=== PATIENT | female | born 1970 | race American Indian/Alaskan Native ===

== ENCOUNTER 2016-07-04 20:17 | Emergency (ER) | payer BC, OTHER ==
[2016-07-04 20:28] VITALS: BP 130/77
--- NOTE | 2016-07-04 21:06 | EDM.PDOC ---
ED HPI GENERAL MEDICAL PROBLEM - General Chief Complaint: Back Pain or Injury Stated Complaint: FEET Time Seen by Provider: 07/04/16 20:30 Source of Information: Reports: Patient - History of Present Illness INITIAL COMMENTS - FREE TEXT/NARRATIVE: c/o bilateral tingling, pins and needles to bottoms of both feet worse over past 2 weeks after walking in [place]. hx similar intermittently over past 2 years. Diabetic, been working on keeping blod sugars under control with diet and exercise. Has not checked BS lately. 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: Musculoskeletal History: Reports: Back Pain, Chronic, Other (See Below) Other Musculoskeletal History: bursitis right shoulder Neurological History: Reports: Concussion, Migraines Psychiatric History: Reports: Anxiety, Depression Endocrine/Metabolic History: Reports: Diabetes, Type II Other Endocrine/Metabolic History: diet and exercise controlled - Past Surgical History Musculoskeletal Surgical History: Reports: Other (See Below) Social & Family History - Family History Family Medical History: Noncontributory - Tobacco Use Smoking Status *Q: Current Every Day Smoker Years of Tobacco use: 26 Packs/Tins Daily: 1 Used Tobacco, but Quit: No Second Hand Smoke Exposure: Yes - Caffeine Use Caffeine Use: Reports: Coffee, Soda - Alcohol Use Days Per Week of Alcohol Use: 0 - Recreational Drug Use Recreational Drug Use: No ED ROS GENERAL - Review of Systems Review Of Systems: ROS reveals no pertinent complaints other than HPI. ED EXAM, GENERAL - Physical Exam Exam: See Below Exam Limited By: Language Barrier General Appearance: Alert, No Apparent Distress Eye Exam: Bilateral Eye: EOMI, PERRL Ears: Normal External Exam Nose: Normal Inspection Throat/Mouth: Normal Inspection Head: Atraumatic, Normocephalic Neck: Normal Inspection, Full Range of Motion Respiratory/Chest: Lungs Clear Cardiovascular: Normal Peripheral Pulses, Regular Rate, Rhythm Peripheral Pulses: 2+: Dorsalis Pedis (L), Dorsalis Pedis (R) GI/Abdominal: Normal Bowel Sounds Extremities: Normal Range of Motion, No Pedal Edema, Other (bilateral pedal pulses present, high arch right flat foot left, hair present all toes, nails eroded thick few small open areas around remaining thick nails. no signs of infection slight decrease in sensation to distal 2-4 toes, ) Neurological: Alert, Oriented Psychiatric: Normal Affect Skin Exam: Warm, Dry, Intact Course - Vital Signs Last Recorded V/S: Last Vital Signs Temp 96.8 F 07/04/16 20:21 Pulse 94 07/04/16 20:21 Resp 16 07/04/16 20:21 BP 130/77 07/04/16 20:21 Pulse Ox 98 07/04/16 20:21 - Orders/Labs/Meds Orders: Active Orders 24 hr Category Date Time Status Glucose [Blood Glucose Check, Bedside] [RC] ONETIME Care 07/04/16 21:06 Active Departure - Departure Time of Disposition: 21:14 Disposition: Home, Self-Care 01 Condition: good Clinical Impression: Neuropathic pain of both feet - Discharge Information Instructions: Neuropathic Pain Forms: ED Department Discharge Additional Instructions: neurontin 300mg one twice daily #14 alternate tylenol and ibuprofen rest tonight [facility] clinic follow up this week - My Orders Last 24 Hours: My Active Orders 07/04/16 21:06 Glucose [Blood Glucose Check, Bedside] [RC] ONETIME - Assessment/Plan Last 24 Hours: My Active Orders 07/04/16 21:06 Glucose [Blood Glucose Check, Bedside] [RC] ONETIME
[2016-07-04] MEDS ORDERED: Gabapentin 300 MG Cap PO ONE (21:18)
[2016-07-04] MEDS ORDERED: Gabapentin 300 MG Cap ONE (21:18)
== END 2016-07-04 21:26 | disposition home or self-care (01) ==
LOC: DL.ED 20:17
DX: G62.9 Polyneuropathy, unspecified (principal); I10 Essential (primary) hypertension; E11.9 Type 2 diabetes mellitus without complications; F17.210 Nicotine dependence, cigarettes, uncomplicated; Z88.5 Allergy status to narcotic agent; Z88.8 Allergy status to other drugs, medicaments and biological substances
CPT/HCPCS: 82962; 99283; A9270-GY

== ENCOUNTER 2016-09-27 00:41 | Emergency (ER) | payer OTHER ==
[2016-09-27 00:46] VITALS: BP 146/72
--- NOTE | 2016-09-27 00:59 | EDM.PDOC ---
ED HPI GENERAL MEDICAL PROBLEM - General Chief Complaint: General Stated Complaint: FEET Time Seen by Provider: 09/27/16 00:51 Source of Information: Reports: Patient History Limitations: Reports: No Limitations - History of Present Illness INITIAL COMMENTS - FREE TEXT/NARRATIVE: This 46 yo female patient reports to the ED with bilateral foot pain. The patient reports she has been seen for similar symptoms in the past, but does not have a primary care provider. The patient has taken ibuprofen for temporary symptoms relief, but no improvement in symptoms. The patient reports her pain started about 2 month ago, but has not seen a primary care provider for over 1 year. The patient reports she used to be seen by a foot doctor in [place], but reports the clinic does not have a foot doctor. The patient was informed that Dr. 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 Bilateral Feet Pain Score (Numeric/FACES): 3 - Related Data Allergies Allergy/AdvReac Type Severity Reaction Status Date / Time codeine Allergy Cannot Verified 09/27/16 00:46 Remember sertraline HCl [From Zoloft] Allergy Cannot Verified 09/27/16 00:46 Remember tramadol Allergy Ringing in Verified 09/27/16 00:46 the Ears Home Meds: Home Meds Gabapentin [Neurontin] 300 mg PO BID 09/27/16 [History] Past Medical History Cardiovascular History: Reports: Hypertension Other Cardiovascular History: diet and exercise controlled 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: Musculoskeletal History: Reports: Back Pain, Chronic, Other (See Below) Other Musculoskeletal History: bursitis right shoulder Neurological History: Reports: Concussion, Migraines Psychiatric History: Reports: Anxiety, Depression Endocrine/Metabolic History: Reports: Diabetes, Type II Other Endocrine/Metabolic History: diet and exercise controlled - Past Surgical History Musculoskeletal Surgical History: Reports: Other (See Below) Social & Family History - Family History Family Medical History: Noncontributory - Tobacco Use Smoking Status *Q: Current Every Day Smoker Years of Tobacco use: 26 Packs/Tins Daily: 1 Used Tobacco, but Quit: No Second Hand Smoke Exposure: Yes - Caffeine Use Caffeine Use: Reports: Coffee, Soda - Alcohol Use Days Per Week of Alcohol Use: 0 - Recreational Drug Use Recreational Drug Use: No ED ROS GENERAL - Review of Systems Review Of Systems: ROS reveals no pertinent complaints other than HPI. ED EXAM, GENERAL - Physical Exam Exam: See Below Exam Limited By: No Limitations General Appearance: Alert, WD/WN, Mild Distress Eye Exam: Bilateral Eye: EOMI, Normal Inspection, PERRL Ears: Normal External Exam, Normal Canal, Hearing Grossly Normal, Normal TMs Ear Exam: Bilateral Ear: Auricle Normal, Canal Normal, TM normal Nose: Normal Inspection, Normal Mucosa, No Blood Throat/Mouth: Normal Inspection, Normal Lips, Normal Teeth, Normal Gums, Normal Oropharynx, Normal Voice, No Airway Compromise Head: Atraumatic, Normocephalic Neck: Normal Inspection, Supple, Non-Tender, Full Range of Motion Respiratory/Chest: No Respiratory Distress, Lungs Clear, Normal Breath Sounds, No Accessory Muscle Use, Chest Non-Tender Cardiovascular: Normal Peripheral Pulses, Regular Rate, Rhythm, No Edema, No Gallop, No JVD, No Murmur, No Rub GI/Abdominal: Normal Bowel Sounds, Soft, Non-Tender, No Organomegaly, No Distention, No Abnormal Bruit, No Mass (Female) Exam: Deferred Rectal (Female) Exam: Deferred Back Exam: Normal Inspection, Full Range of Motion, NT Extremities: Normal Inspection, Normal Range of Motion, Non-Tender, Normal Capillary Refill, No Pedal Edema Neurological: Alert, Oriented, CN II-XII Intact, Normal Cognition, Normal Gait, Normal Reflexes, No Motor/Sensory Deficits Psychiatric: Normal Affect, Normal Mood Skin Exam: Warm, Dry, Intact, Normal Color, No Rash Lymphatic: No Adenopathy Course - Vital Signs Last Recorded V/S: Last Vital Signs Temp 36.1 C 09/27/16 00:44 Pulse 90 09/27/16 00:44 Resp 18 09/27/16 00:44 BP 146/72 H 09/27/16 00:44 Pulse Ox 99 09/27/16 00:44 - Orders/Labs/Meds Orders: Active Orders 24 hr Category Date Time Status Glucose [Blood Glucose Check, Bedside] [RC] ONETIME Care 09/27/16 00:48 Ordered Departure - Departure Time of Disposition: 01:02 Disposition: Home, Self-Care 01 Condition: Fair Clinical Impression: Neuropathic pain of both feet - Discharge Information Instructions: Peripheral Neuropathy Forms: ED Department Discharge Care Plan Goals: The patient was advised of the examination and lab results during the visit. The patient was given an oral dose of Gabapentin while in the ED. The patient was discharged with a script for Gabapentin (300 mg) #8 to take 1 by mouth 2 times per day. The patient should follow-up with her primary care facility for continued evaluation and management. If the patient has any additional symptoms or concerns, the patient should visit her primary care facility or return to the emergency department. - My Orders Last 24 Hours: My Active Orders 09/27/16 00:48 Glucose [Blood Glucose Check, Bedside] [RC] ONETIME - Assessment/Plan Last 24 Hours: My Active Orders 09/27/16 00:48 Glucose [Blood Glucose Check, Bedside] [RC] ONETIME
[2016-09-27] MEDS ORDERED: Gabapentin 300 MG Cap PO ONE (01:00)
== END 2016-09-27 01:19 | disposition home or self-care (01) ==
LOC: DL.ED 00:41
DX: M79.2 Neuralgia and neuritis, unspecified (principal); M79.672 Pain in left foot; M79.671 Pain in right foot; I10 Essential (primary) hypertension; G43.909 Migraine, unspecified, not intractable, without status migrainosus; E11.9 Type 2 diabetes mellitus without complications; F17.210 Nicotine dependence, cigarettes, uncomplicated; Z88.5 Allergy status to narcotic agent; Z88.8 Allergy status to other drugs, medicaments and biological substances
CPT/HCPCS: 82962; 99283; A9270

== ENCOUNTER 2016-10-04 22:57 | Emergency (ER) | payer OTHER ==
--- NOTE | 2016-10-04 23:05 | EDM.PDOC ---
ED HPI GENERAL MEDICAL PROBLEM - General Chief Complaint: Respiratory Problem Stated Complaint: SICK Time Seen by Provider: 10/04/16 23:05 Source of Information: Reports: Patient History Limitations: Reports: No Limitations - History of Present Illness INITIAL COMMENTS - FREE TEXT/NARRATIVE: c/o cough sore throat and congestion for past 2 day, fever tonight 101 at home Headache Pain Score (Numeric/FACES): 3 - Related Data Allergies Allergy/AdvReac Type Severity Reaction Status Date / Time codeine Allergy Cannot Verified 10/04/16 23:10 Remember sertraline HCl [From Zoloft] Allergy Cannot Verified 10/04/16 23:10 Remember tramadol Allergy Ringing in Verified 10/04/16 23:10 the Ears Home Meds: Home Meds Gabapentin [Neurontin] 300 mg PO BID 09/27/16 [History] Past Medical History Cardiovascular History: Reports: Hypertension Other Cardiovascular History: diet and exercise controlled 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: Musculoskeletal History: Reports: Back Pain, Chronic, Other (See Below) Other Musculoskeletal History: bursitis right shoulder Neurological History: Reports: Concussion, Migraines Psychiatric History: Reports: Anxiety, Depression Endocrine/Metabolic History: Reports: Diabetes, Type II Other Endocrine/Metabolic History: diet and exercise controlled - Past Surgical History Musculoskeletal Surgical History: Reports: Other (See Below) Social & Family History - Family History Family Medical History: Noncontributory - Tobacco Use Smoking Status *Q: Current Every Day Smoker Years of Tobacco use: 26 Packs/Tins Daily: 1 Used Tobacco, but Quit: No Second Hand Smoke Exposure: Yes - Caffeine Use Caffeine Use: Reports: Coffee, Soda - Alcohol Use Days Per Week of Alcohol Use: 0 - Recreational Drug Use Recreational Drug Use: No ED ROS GENERAL - Review of Systems Review Of Systems: See Below Constitutional: Reports: Fever HEENT: Reports: Sinus Problem, Throat Pain Respiratory: Reports: Cough (worse at night.) Cardiovascular: Reports: No Symptoms GI/Abdominal: Reports: No Symptoms Musculoskeletal: Reports: No Symptoms Skin: Reports: No Symptoms Neurological: Reports: Headache ED EXAM, GENERAL - Physical Exam Exam: See Below Exam Limited By: No Limitations General Appearance: Alert, Mild Distress Ears: Normal External Exam, Normal TMs Nose: Normal Inspection Throat/Mouth: No Airway Compromise, Other (posterior pharnyx erythema) Head: Atraumatic, Normocephalic. No: Facial Tenderness, Sinus Tenderness Neck: Full Range of Motion, Lymphadenopathy (L), Lymphadenopathy (R) Respiratory/Chest: No Respiratory Distress, Lungs Clear, Other (frequent dry cough) Cardiovascular: Normal Peripheral Pulses GI/Abdominal: Soft Extremities: Normal Inspection Neurological: Alert, Oriented, Normal Cognition Psychiatric: Normal Affect, Normal Mood Skin Exam: Warm, Dry, Intact, Normal Color Course - Vital Signs Last Recorded V/S: Last Vital Signs Temp 98.4 F 10/05/16 01:59 Pulse 72 10/05/16 00:55 Resp 20 10/05/16 00:55 BP 121/77 10/05/16 00:55 Pulse Ox 96 10/05/16 01:27 - Orders/Labs/Meds Orders: Active Orders 24 hr Category Date Time Status RT Aerosol Therapy [RC] ASDIRECTED Care 10/05/16 01:17 Active Labs: Laboratory Tests 10/04/16 10/04/16 10/04/16 Range/Units 23:15 23:15 23:15 WBC 8.3 (5.0-10.0) 10^3/uL RBC 4.55 (4.2-5.4) 10^6/uL Hgb 14.2 (12.0-16.0) g/dL Hct 41.8 (37.0-47.0) % MCV 91.9 (80-100) fL MCH 31.2 (27.0-34.0) pg MCHC 34.0 (33.0-35.0) g/dL Plt Count 239 (150-450) 10^3/uL Neut % (Auto) 55.4 (42.2-75.2) % Lymph % (Auto) 35.1 (20.5-50.1) % [place] % (Auto) 7.1 (2-8) % Eos % (Auto) 2.2 (1.0-3.0) % Baso % (Auto) 0.2 (0.0-1.0) % Add Manual Diff Yes Neutrophils % (Manual) 58 % Band Neutrophils % 4 % Lymphocytes % (Manual) 32 % Monocytes % (Manual) 5 % Eosinophils % (Manual) 1 % Sodium 138 (135-145) mmol/L Potassium 3.9 (3.6-5.0) mmol/L Chloride 108 (101-111) mmol/L Carbon Dioxide 21.0 (21.0-31.0) mmol/L Anion Gap 12.9 BUN 10 (7-18) mg/dL Creatinine 0.7 (0.6-1.3) mg/dL Est Cr Clr Drug Dosing 85.79 mL/min Estimated GFR (MDRD) > 60 BUN/Creatinine Ratio 14.28 Glucose 116 H (74-105) mg/dL Lactic Acid 0.8 (0.5-2.2) mmol/L Calcium 8.9 (8.4-10.2) mg/dl Total Bilirubin 0.6 (0.2-1.0) mg/dL AST 22 (10-42) IU/L ALT 17 (10-60) IU/L Alkaline Phosphatase 52 (42-121) IU/L Troponin I < 0.02 (0.00-0.02) ng/ml B-Natriuretic Peptide 8 (0-100) pg/ml Total Protein 7.6 (6.7-8.2) g/dl Albumin 3.8 (3.2-5.5) g/dl Globulin 3.8 Albumin/Globulin Ratio 1.00 Urine Color (YELLOW) Urine Appearance (CLEAR) Urine pH (5.0-9.0) Ur Specific [place] (1.005-1.030) Urine Protein (NEGATIVE) Urine Glucose (UA) (NEGATIVE) Urine Ketones (NEGATIVE) Urine Occult Blood (NEGATIVE) Urine Nitrite (NEGATIVE) Urine Bilirubin (NEGATIVE) Urine Urobilinogen (0.2-1.0) mg/dL Ur Leukocyte Esterase (NEGATIVE) Urine RBC /HPF Urine WBC (0-5/HPF) /HPF Ur Epithelial Cells /HPF Urine Bacteria (0-FEW/HPF) /HPF Urine Mucus /LPF / Range/Units 23:41 WBC (5.0-10.0) 10^3/uL RBC (4.2-5.4) 10^6/uL Hgb (12.0-16.0) g/dL Hct (37.0-47.0) % MCV (80-100) fL MCH (27.0-34.0) pg MCHC (33.0-35.0) g/dL Plt Count (150-450) 10^3/uL Neut % (Auto) (42.2-75.2) % Lymph % (Auto) (20.5-50.1) % [place] % (Auto) (2-8) % Eos % (Auto) (1.0-3.0) % Baso % (Auto) (0.0-1.0) % Add Manual Diff Neutrophils % (Manual) % Band Neutrophils % % Lymphocytes % (Manual) % Monocytes % (Manual) % Eosinophils % (Manual) % Sodium (135-145) mmol/L Potassium (3.6-5.0) mmol/L Chloride (101-111) mmol/L Carbon Dioxide (21.0-31.0) mmol/L Anion Gap BUN (7-18) mg/dL Creatinine (0.6-1.3) mg/dL Est Cr Clr Drug Dosing mL/min Estimated GFR (MDRD) BUN/Creatinine Ratio Glucose (74-105) mg/dL Lactic Acid (0.5-2.2) mmol/L Calcium (8.4-10.2) mg/dl Total Bilirubin (0.2-1.0) mg/dL AST (10-42) IU/L ALT (10-60) IU/L Alkaline Phosphatase (42-121) IU/L Troponin I (0.00-0.02) ng/ml B-Natriuretic Peptide (0-100) pg/ml Total Protein (6.7-8.2) g/dl Albumin (3.2-5.5) g/dl Globulin Albumin/Globulin Ratio Urine Color Yellow (YELLOW) Urine Appearance Slightly cloudy (CLEAR) Urine pH 7.0 (5.0-9.0) Ur Specific [place] 1.010 (1.005-1.030) Urine Protein Negative (NEGATIVE) Urine Glucose (UA) Negative (NEGATIVE) Urine Ketones Negative (NEGATIVE) Urine Occult Blood Moderate H (NEGATIVE) Urine Nitrite Negative (NEGATIVE) Urine Bilirubin Negative (NEGATIVE) Urine Urobilinogen 0.2 (0.2-1.0) mg/dL Ur Leukocyte Esterase Negative (NEGATIVE) Urine RBC 20-30 H /HPF Urine WBC 0-5 (0-5/HPF) /HPF Ur Epithelial Cells Rare /HPF Urine Bacteria Rare (0-FEW/HPF) /HPF Urine Mucus Rare /LPF Meds: Medications Discontinued Medications Generic Name Dose Route Start Last Admin Trade Name Freq PRN Reason Stop Dose Admin Albuterol Confirm 10/05/16 01:44 10/05/16 01:52 Proventil Hfa Administered 10/05/16 01:45 Not Given Dose 6.7 gm INH .STK-MED ONE Albuterol/Ipratropium 3 ml 10/05/16 01:17 10/05/16 01:27 Duoneb 3.0-0.5 Mg/3 Ml NEB 10/05/16 01:18 3 ml ONETIME ONE Administration Amoxicillin/Clavulanate Potassium Confirm 10/05/16 01:44 10/05/16 01:52 Augmentin 875 Mg/125 Mg Administered 10/05/16 01:45 Not Given Dose 1 tab .ROUTE .STK-MED ONE - Radiology Interpretation Free Text/Narrative:: CXR negative Departure - Departure Time of Disposition: 01:35 Disposition: Home, Self-Care 01 Condition: Fair Clinical Impression: Bronchitis, Strep pharyngitis Sinusitis Qualifiers: Sinusitis location: unspecified location Chronicity: unspecified Qualified Code (s): J32.9 - Chronic sinusitis, unspecified - Discharge Information Instructions: Upper Respiratory Infection, Adult, [id number] Forms: ED Department Discharge Additional Instructions: increase fluids tylenol every 4 hours as needed for fever augmentin 875mg one twice daily for one week albuterol inhaler 2 puffs evry 4 hours as needed for cough - My Orders Last 24 Hours: My Active Orders 10/05/16 01:17 RT Aerosol Therapy [RC] ASDIRECTED - Assessment/Plan Last 24 Hours: My Active Orders 10/05/16 01:17 RT Aerosol Therapy [RC] ASDIRECTED
[2016-10-04 23:47] LABS: CHLORIDE,CL 108 mmol/L (101-111); SODIUM,NA 138 mmol/L (135-145)
[2016-10-05 01:04] VITALS: BP 121/77
[2016-10-05] MEDS ORDERED: Albuterol/Ipratropium 3.0-0.5 MG/3 ML Neb Soln NEB ONE (01:17)
[2016-10-05] MEDS ORDERED: Amoxicillin/Clavulanate K 875-125 MG Tab PO ONE (01:44)
[2016-10-05] MEDS ORDERED: Albuterol 6.7 GM Inhaler INH ONE ×2 (01:44)
[2016-10-05] MEDS ORDERED: Amoxicillin/Clavulanate K 875-125 MG Tab ONE (01:44)
== END 2016-10-05 02:01 | disposition home or self-care (01) ==
LOC: DL.ED 22:57
DX: J40 Bronchitis, not specified as acute or chronic (principal); J02.0 Streptococcal pharyngitis; J32.9 Chronic sinusitis, unspecified; I10 Essential (primary) hypertension; E11.9 Type 2 diabetes mellitus without complications; F17.210 Nicotine dependence, cigarettes, uncomplicated; Z88.5 Allergy status to narcotic agent; Z88.6 Allergy status to analgesic agent; Z88.8 Allergy status to other drugs, medicaments and biological substances
CPT/HCPCS: 36415; 71010; 80053; 81001; 83605; 83880; 84484; 85025; 87430; 94640; 99284; A9270

== ENCOUNTER 2016-12-13 23:24 | Emergency (ER) | payer OTHER ==
[2016-12-13 23:34] VITALS: BP 137/85
[2016-12-13] MEDS ORDERED: Meclizine 12.5 MG Tab PO ONE (23:39)
--- NOTE | 2016-12-13 23:43 | EDM.PDOC ---
ED HPI GENERAL MEDICAL PROBLEM - General Chief Complaint: General Stated Complaint: DIZZY [id number] Time Seen by Provider: 12/13/16 23:40 Source of Information: Reports: Patient History Limitations: Reports: No Limitations - History of Present Illness INITIAL COMMENTS - FREE TEXT/NARRATIVE: was getting ready for work suddenly felt dizzy with room spinning but no nausea/ vomiting yet. denies CP/SOB but face feels tingling. got scared because never had this before. 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: Musculoskeletal History: Reports: Back Pain, Chronic, Other (See Below) Other Musculoskeletal History: bursitis right shoulder Neurological History: Reports: Concussion, Migraines Psychiatric History: Reports: Anxiety, Depression Endocrine/Metabolic History: Reports: Diabetes, Type II Other Endocrine/Metabolic History: diet and exercise controlled - Past Surgical History Musculoskeletal Surgical History: Reports: Other (See Below) Social & Family History - Family History Family Medical History: Noncontributory - Tobacco Use Smoking Status *Q: Heavy Tobacco Smoker Years of Tobacco use: 20 Packs/Tins Daily: 1 Used Tobacco, but Quit: No Second Hand Smoke Exposure: Yes - Caffeine Use Caffeine Use: Reports: Coffee, Soda - Alcohol Use Days Per Week of Alcohol Use: 0 - Recreational Drug Use Recreational Drug Use: No ED ROS GENERAL - Review of Systems Review Of Systems: ROS reveals no pertinent complaints other than HPI. ED EXAM, GENERAL - Physical Exam Exam: See Below Exam Limited By: No Limitations General Appearance: Alert, WD/WN, Anxious Eye Exam: Bilateral Eye: PERRL (pupils ER @ 4mm) Ears: Normal External Exam, Normal Canal, Hearing Grossly Normal Ear Exam: Bilateral Ear: TM Dull Throat/Mouth: Normal Inspection, Normal Oropharynx, Normal Voice, No Airway Compromise Head: Atraumatic Neck: Non-Tender, Full Range of Motion Respiratory/Chest: No Respiratory Distress, Lungs Clear, Normal Breath Sounds Cardiovascular: Regular Rate, Rhythm GI/Abdominal: Soft, Non-Tender Neurological: Alert, Oriented, Normal Cognition, Normal Gait, No Motor/Sensory Deficits Psychiatric: Anxious Skin Exam: Warm, Dry, Normal Color Lymphatic: No Adenopathy Course - Vital Signs Last Recorded V/S: Last Vital Signs Temp 36.6 C 12/13/16 23:31 Pulse 75 12/13/16 23:31 Resp 18 12/13/16 23:31 BP 137/85 12/13/16 23:31 Pulse Ox 97 12/13/16 23:31 - Orders/Labs/Meds Orders: Active Orders 24 hr Category Date Time Status EKG 12 Lead [EKG Documentation Completion] [RC] STAT Care 12/13/16 23:38 Active Labs: Laboratory Tests 12/13/16 12/13/16 Range/Units 23:46 23:46 WBC 8.3 (5.0-10.0) 10^3/uL RBC 4.40 (4.2-5.4) 10^6/uL Hgb 13.6 (12.0-16.0) g/dL Hct 40.8 (37.0-47.0) % MCV 92.7 (80-100) fL MCH 30.9 (27.0-34.0) pg MCHC 33.3 (33.0-35.0) g/dL Plt Count 218 (150-450) 10^3/uL Neut % (Auto) 56.8 (42.2-75.2) % Lymph % (Auto) 35.3 (20.5-50.1) % [place] % (Auto) 5.4 (2-8) % Eos % (Auto) 2.4 (1.0-3.0) % Baso % (Auto) 0.1 (0.0-1.0) % Sodium 136 (135-145) mmol/L Potassium 3.9 (3.6-5.0) mmol/L Chloride 106 (101-111) mmol/L Carbon Dioxide 22.0 (21.0-31.0) mmol/L Anion Gap 11.9 BUN 12 (7-18) mg/dL Creatinine 0.7 (0.6-1.3) mg/dL Est Cr Clr Drug Dosing 85.79 mL/min Estimated GFR (MDRD) > 60 BUN/Creatinine Ratio 17.14 Glucose 134 H (74-105) mg/dL Calcium 8.9 (8.4-10.2) mg/dl Total Bilirubin 0.8 (0.2-1.0) mg/dL AST 22 (10-42) IU/L ALT 19 (10-60) IU/L Alkaline Phosphatase 47 (42-121) IU/L Troponin I < 0.02 (0.00-0.02) ng/ml Total Protein 7.0 (6.7-8.2) g/dl Albumin 3.8 (3.2-5.5) g/dl Globulin 3.2 Albumin/Globulin Ratio 1.19 Meds: Medications Discontinued Medications Generic Name Dose Route Start Last Admin Trade Name Freq PRN Reason Stop Dose Admin Meclizine HCl 12.5 mg 12/13/16 23:39 12/13/16 23:48 Antivert PO 12/13/16 23:40 12.5 mg ONETIME ONE Administration Promethazine HCl 25 mg 12/14/16 00:09 12/14/16 00:14 Phenergan IM 12/14/16 00:10 25 mg ONETIME ONE Administration - Re-Assessments/Exams Free Text/Narrative Re-Assessment/Exam: 12/14/16 00:40 re-exam; s/p IM phenergan = much better but not 100%. Departure - Departure Time of Disposition: 00:40 Disposition: Home, Self-Care 01 Condition: Good Clinical Impression: Labyrinthine dysfunction Qualifiers: Laterality: bilateral Qualified Code(s): H83.2X3 - Labyrinthine dysfunction, bilateral - Discharge Information Instructions: Labyrinthitis, [id number] Forms: ED Department Discharge Additional Instructions: 1) rest as much as possible 2) follow up at clinic or recheck as needed rx givne; medrol dospak antivert 25mg bid x 12 - My Orders Last 24 Hours: My Active Orders 12/13/16 23:38 EKG 12 Lead [EKG Documentation Completion] [RC] STAT - Assessment/Plan Last 24 Hours: My Active Orders 12/13/16 23:38 EKG 12 Lead [EKG Documentation Completion] [RC] STAT
[2016-12-14] MEDS ORDERED: Promethazine 25 MG/ML SDV IM ONE (00:09)
[2016-12-14 00:12] LABS: CHLORIDE,CL 106 mmol/L (101-111); SODIUM,NA 136 mmol/L (135-145)
--- NOTE | 2016-12-15 11:28 | EKG ---
12/13/2016 - YOVANNY CHU - TIME: 2338 hours. EKG shows normal sinus rhythm. [facility] /[id number]
== END 2016-12-14 00:49 | disposition home or self-care (01) ==
LOC: DL.ED 23:24
DX: H83.2X3 Labyrinthine dysfunction, bilateral (principal); F17.210 Nicotine dependence, cigarettes, uncomplicated; Z88.5 Allergy status to narcotic agent; Z88.8 Allergy status to other drugs, medicaments and biological substances
CPT/HCPCS: 36415; 80053; 84484; 85025; 93005; 96372; 99284; A9270; J2550

== ENCOUNTER 2017-02-26 20:29 | Emergency (ER) | payer OTHER ==
[2017-02-26] MEDS ORDERED: Amoxicillin/Clavulanate K 875-125 MG Tab PO ONE (20:30)
[2017-02-26 20:48] VITALS: BP 153/88
--- NOTE | 2017-02-26 21:39 | EDM.PDOC ---
ED HPI GENERAL MEDICAL PROBLEM - General Chief Complaint: ENT Problem Stated Complaint: THROAT/TROUBLE BREATHING, [id number] Time Seen by Provider: 02/26/17 21:34 Source of Information: Reports: Patient - History of Present Illness INITIAL COMMENTS - FREE TEXT/NARRATIVE: c/ sore throat and chills x 2 days, worse today. Throat Pain Score (Numeric/FACES): 8 - Related Data Allergies Allergy/AdvReac Type Severity Reaction Status Date / Time sertraline HCl [From Zoloft] Allergy Cannot Verified 02/26/17 20:48 Remember tramadol Allergy Ringing in Verified 02/26/17 20:48 the Ears Home Meds: Home Meds . 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: Musculoskeletal History: Reports: Back Pain, Chronic, Other (See Below) Other Musculoskeletal History: bursitis right shoulder Neurological History: Reports: Concussion, Migraines Psychiatric History: Reports: Anxiety, Depression Endocrine/Metabolic History: Reports: Diabetes, Type II Other Endocrine/Metabolic History: diet and exercise controlled Hematologic History: Reports: None Immunologic History: Reports: None Oncologic (Cancer) History: Reports: None Dermatologic History: Reports: None - Past Surgical History Musculoskeletal Surgical History: Reports: Other (See Below) Social & Family History - Family History Family Medical History: Noncontributory - Tobacco Use Smoking Status *Q: Current Every Day Smoker Years of Tobacco use: 31 Packs/Tins Daily: 1.1 Used Tobacco, but Quit: No Second Hand Smoke Exposure: Yes - Caffeine Use Caffeine Use: Reports: Coffee, Soda - Alcohol Use Days Per Week of Alcohol Use: 0 - Recreational Drug Use Recreational Drug Use: No ED ROS ENT - Review of Systems Review Of Systems: See Below Constitutional: Reports: Chills, Decreased Appetite HEENT: Reports: Throat Pain Respiratory: Reports: Cough Cardiovascular: Reports: No Symptoms GI/Abdominal: Reports: No Symptoms Musculoskeletal: Reports: No Symptoms ED EXAM, ENT - Physical Exam Exam: See Below Exam Limited By: No Limitations General Appearance: Alert, Moderate Distress Eye Exam: Bilateral Eye: EOMI Ears: Normal External Exam, Normal TMs Nose: Normal Inspection Mouth/Throat: Normal Inspection, Pharyngeal Erythema. No: Tonsillar Exudates Head: Atraumatic, Normocephalic Neck: Normal Inspection, Supple, Non-Tender, Full Range of Motion, Lymphadenopathy (L), Lymphadenopathy (R) Respiratory/Chest: No Respiratory Distress, Lungs Clear, Normal Breath Sounds Cardiovascular: Normal Peripheral Pulses, Regular Rate, Rhythm GI/Abdominal: Normal Bowel Sounds, Soft, Non-Tender Back: Normal Inspection Neurological: Alert, Oriented Psychiatric: Normal Affect Skin: Warm, Dry, Intact, Normal Color Course - Vital Signs Last Recorded V/S: Last Vital Signs Temp 99 F 02/26/17 20:44 Pulse 86 02/26/17 20:44 Resp 18 02/26/17 20:44 BP 153/88 H 02/26/17 20:44 Pulse Ox 98 02/26/17 20:44 - Orders/Labs/Meds Meds: Medications Discontinued Medications Generic Name Dose Route Start Last Admin Trade Name Jeronimoq PRN Reason Stop Dose Admin Amoxicillin/Clavulanate Potassium Confirm 02/26/17 21:42 02/26/17 21:46 Augmentin 875 Mg/125 Mg Administered 02/26/17 21:43 Not Given Dose 2 tab .ROUTE .STK-MED ONE Departure - Departure Time of Disposition: 21:36 Disposition: Home, Self-Care 01 Condition: Good Clinical Impression: Strep pharyngitis - Discharge Information Instructions: Strep Throat, [id number] Referrals: PCP,None [Primary Care Provider] - Forms: ED Department Discharge Additional Instructions: tylenol 650mg every 4 hours as needed for discomfort chloraseptic throat spray as needed (OTC) increase fluids augmentin 875mg one twice daily for 10 days follow up in clinic as needed good hand washing, do not share utensils or drinking glasses
[2017-02-26] MEDS ORDERED: Amoxicillin/Clavulanate K 875-125 MG Tab ONE (21:42)
== END 2017-02-26 21:51 | disposition home or self-care (01) ==
LOC: DL.ED 20:29
DX: J02.0 Streptococcal pharyngitis (principal); F17.210 Nicotine dependence, cigarettes, uncomplicated; Z88.5 Allergy status to narcotic agent; Z88.8 Allergy status to other drugs, medicaments and biological substances
CPT/HCPCS: 87430; 99283; A9270-GY

== ENCOUNTER 2018-04-03 19:24 | Emergency (ER) | payer OTHER ==
[2018-04-03 19:42] VITALS: BP 136/82
--- NOTE | 2018-04-03 19:49 | EDM.PDOC ---
ED HPI GENERAL MEDICAL PROBLEM - General Chief Complaint: General Stated Complaint: PAIN Time Seen by Provider: 04/03/18 20:00 Source of Information: Reports: Patient History Limitations: Reports: No Limitations - History of Present Illness INITIAL COMMENTS - FREE TEXT/NARRATIVE: Sore to inner labia since wednesday. Tried warm baths, not helping. Hurts to sit down tonight. No concerns STD, no prior and no activity for over 2 years. Diarrhea last week. Resolved. No hx skin infections. No fever or chills. 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: Musculoskeletal History: Reports: Back Pain, Chronic, Other (See Below) Other Musculoskeletal History: bursitis right shoulder Neurological History: Reports: Concussion, Migraines Psychiatric History: Reports: Anxiety, Depression Endocrine/Metabolic History: Reports: Diabetes, Type II Other Endocrine/Metabolic History: diet and exercise controlled Hematologic History: Reports: None Immunologic History: Reports: None Oncologic (Cancer) History: Reports: None Dermatologic History: Reports: None - Past Surgical History Musculoskeletal Surgical History: Reports: Other (See Below) Social & Family History - Family History Family Medical History: Noncontributory - Caffeine Use Caffeine Use: Reports: Coffee, Soda ED ROS GENERAL - Review of Systems Review Of Systems: ROS reveals no pertinent complaints other than HPI. ED EXAM, GENERAL - Physical Exam Exam: See Below Exam Limited By: No Limitations General Appearance: Alert, Moderate Distress Eye Exam: Bilateral Eye: EOMI Ears: Normal External Exam Nose: Normal Inspection Throat/Mouth: Normal Lips, Normal Voice Head: Atraumatic, Normocephalic Neck: Normal Inspection Respiratory/Chest: No Respiratory Distress, Normal Breath Sounds Cardiovascular: Normal Peripheral Pulses, Regular Rate, Rhythm GI/Abdominal: Soft (Female) Exam: Other (labia abcess) Extremities: Normal Range of Motion Neurological: Alert, Oriented, Normal Cognition Psychiatric: Normal Affect, Normal Mood Skin Exam: Warm, Dry, Intact, Normal Color, Erythema, Increased Warmth Lymphatic: Other (2x3cm raised firm indurated tender area left posterior labia) Course - Vital Signs Last Recorded V/S: Last Vital Signs Temp 98.4 F 04/03/18 19:41 Pulse 93 04/03/18 19:41 Resp 20 04/03/18 19:41 BP 136/82 04/03/18 19:41 Pulse Ox 99 04/03/18 19:41 - Orders/Labs/Meds Orders: Active Orders 24 hr Category Date Time Status UA RFX DENNY AND CULT IF INDIC [URIN] Routine Lab 04/03/18 20:18 Ordered Meds: Medications Discontinued Medications Generic Name Dose Route Start Last Admin Trade Name Freq PRN Reason Stop Dose Admin Hydrocodone Bitart/Acetaminophen Confirm 04/03/18 20:32 [place] 325-10 Mg Administered 04/03/18 20:33 Dose 3 tab .ROUTE .STK-MED ONE Clindamycin HCl Confirm 04/03/18 20:32 Cleocin Administered 04/03/18 20:33 Dose 900 mg .ROUTE .STK-MED ONE Departure - Departure Time of Disposition: 20:31 Disposition: Home, Self-Care 01 Condition: Good Clinical Impression: Abscess - Discharge Information *PRESCRIPTION DRUG MONITORING PROGRAM REVIEWED*: Yes *COPY OF PRESCRIPTION DRUG MONITORING REPORT IN PATIENT DONA: No Instructions: Skin Abscess, [id number], Incision and Drainage Forms: ED Department Discharge Additional Instructions: follow up with Dr Scherer in am call [phone] to schedule warm pack avoid pressure to area clindamycin 300mg three itmes daily for one week hydrocodone 10/325 one every 6 hours as needed for severe pain tylenol 650mg every 4 hours as needed mild to moderate pain probiotic - My Orders Last 24 Hours: My Active Orders 04/03/18 20:18 UA RFX DENNY AND CULT IF INDIC [URIN] Routine - Assessment/Plan Last 24 Hours: My Active Orders 04/03/18 20:18 UA RFX DENNY AND CULT IF INDIC [URIN] Routine
[2018-04-03] MEDS ORDERED: Acetaminophen/HYDROcodone 325-10 MG Tab ONE (20:32)
[2018-04-03] MEDS ORDERED: Clindamycin HCl 150 MG Cap ONE (20:32)
== END 2018-04-03 20:48 | disposition home or self-care (01) ==
LOC: DL.ED 19:24
DX: N76.4 Abscess of vulva (principal); F17.210 Nicotine dependence, cigarettes, uncomplicated; I10 Essential (primary) hypertension; Z88.5 Allergy status to narcotic agent; Z88.8 Allergy status to other drugs, medicaments and biological substances
CPT/HCPCS: 99283

== ENCOUNTER 2018-07-03 21:21 | Emergency (ER) | payer OTHER ==
[2018-07-03] MEDS ORDERED: Acetaminophen/HYDROcodone 325-10 MG Tab PO ONE (21:22)
[2018-07-03] MEDS ORDERED: Cyclobenzaprine 10 MG Tab PO ONE (21:22)
[2018-07-03 21:27] VITALS: BP 161/94
[2018-07-03] MEDS ORDERED: Cyclobenzaprine 10 MG Tab ONE (22:09)
[2018-07-03] MEDS ORDERED: Acetaminophen/HYDROcodone 325-10 MG Tab ONE (22:09)
--- NOTE | 2018-07-03 22:09 | EDM.PDOC ---
ED HPI GENERAL MEDICAL PROBLEM - General Chief Complaint: Upper Extremity Injury/Pain Stated Complaint: RT SHOULDER Time Seen by Provider: 07/03/18 22:00 Source of Information: Reports: Patient History Limitations: Reports: No Limitations - History of Present Illness INITIAL COMMENTS - FREE TEXT/NARRATIVE: right shoulder pain x 3 days, not relieved with ibuprofen, has not tried alternating with tylenol No fever or joint swelling. Hx bursitis to shoulder last time in november. Has not seen PCP for shoulder recently. No prior hx of PT. Limited ROM worse upward or forward movement. Has lidocaine patches, also used without relief. Pasin spasms up to neck and upper back. Right Shoulder Pain Score (Numeric/FACES): 4 - Related Data Allergies Allergy/AdvReac Type Severity Reaction Status Date / Time sertraline HCl [From Zoloft] Allergy Cannot Verified 07/03/18 21:31 Remember tramadol Allergy Ringing in Verified 07/03/18 21:31 the Ears Home Meds: Home Meds . 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: Musculoskeletal History: Reports: Back Pain, Chronic, Other (See Below) Other Musculoskeletal History: bursitis right shoulder Neurological History: Reports: Concussion, Migraines Psychiatric History: Reports: Anxiety, Depression Endocrine/Metabolic History: Reports: Diabetes, Type II Other Endocrine/Metabolic History: diet and exercise controlled Hematologic History: Reports: None Immunologic History: Reports: None Oncologic (Cancer) History: Reports: None Dermatologic History: Reports: None - Past Surgical History Musculoskeletal Surgical History: Reports: Other (See Below) Social & Family History - Family History Family Medical History: Noncontributory - Tobacco Use Smoking Status *Q: Current Every Day Smoker Years of Tobacco use: 30 Packs/Tins Daily: 1 - Caffeine Use Caffeine Use: Reports: Coffee, Soda - Recreational Drug Use Recreational Drug Use: No Review of Systems - Review of Systems Review Of Systems: ROS reveals no pertinent complaints other than HPI. ED EXAM, GENERAL - Physical Exam Exam: See Below Exam Limited By: No Limitations General Appearance: Alert, Mild Distress Eye Exam: Bilateral Eye: EOMI Ears: Normal External Exam, Hearing Grossly Normal Nose: Normal Inspection Throat/Mouth: Normal Inspection Head: Atraumatic Neck: Tender Lateral (right) Respiratory/Chest: No Respiratory Distress, Lungs Clear Cardiovascular: Regular Rate, Rhythm Back Exam: Normal Inspection Extremities: Limited Range of Motion (increase pain with rotationand upward movment. mild crepitus. no swelling or redness) Neurological: Alert, Oriented, Normal Cognition, No Motor/Sensory Deficits Psychiatric: Normal Affect, Normal Mood Skin Exam: Warm, Dry, Intact, Normal Color Course - Vital Signs Last Recorded V/S: Last Vital Signs Temp 97.1 F 07/03/18 21:24 Pulse 86 07/03/18 21:24 Resp 18 07/03/18 21:24 BP 161/94 H 07/03/18 21:24 Pulse Ox 99 07/03/18 21:24 - Orders/Labs/Meds Meds: Medications Discontinued Medications Generic Name Dose Route Start Last Admin Trade Name Amy PRN Reason Stop Dose Admin Hydrocodone Bitart/Acetaminophen Confirm 07/03/18 22:09 07/03/18 22:22 [place] 325-10 Mg Administered 07/03/18 22:10 Not Given Dose 1 tab .ROUTE .STK-MED ONE Cyclobenzaprine HCl Confirm 07/03/18 22:09 07/03/18 22:22 Flexeril Administered 07/03/18 22:10 Not Given Dose 10 mg .ROUTE .STK-MED ONE Departure - Departure Time of Disposition: 22:02 Disposition: Home, Self-Care 01 Condition: Good Clinical Impression: Right shoulder pain Qualifiers: Chronicity: acute Qualified Code(s): M25.511 - Pain in right shoulder - Discharge Information *PRESCRIPTION DRUG MONITORING PROGRAM REVIEWED*: Yes *COPY OF PRESCRIPTION DRUG MONITORING REPORT IN PATIENT DONA: No Instructions: Shoulder Pain, [id number] Referrals: PCP,None [Primary Care Provider] - Forms: ED Department Discharge Additional Instructions: Follow up primary care for physical thrapy referral alternate tylenol 650mg and ibuprofen 600mg every 4 hours as needed for discomfort heat or ice to shoulder for discomfort flexeril 10mg 1/2 to one tablet every8 hours as needed for spasm hydrocodone 10/325 one at bed tonight for sever pain prednisone 20mg x 2 days then one daily x 5 days
== END 2018-07-03 22:22 | disposition home or self-care (01) ==
LOC: DL.ED 21:21
DX: M25.511 Pain in right shoulder (principal); I10 Essential (primary) hypertension; E11.9 Type 2 diabetes mellitus without complications; F17.210 Nicotine dependence, cigarettes, uncomplicated; Z88.8 Allergy status to other drugs, medicaments and biological substances; Z88.5 Allergy status to narcotic agent
CPT/HCPCS: 99283; A9270-GY

== ENCOUNTER 2018-11-12 04:06 | Emergency (ER) | payer OTHER ==
[2018-11-12 03:51] LABS: ANION GAP 11.7; CHLORIDE,CL 107 mmol/L (101-111); SODIUM,NA 138 mmol/L (135-145)
--- NOTE | 2018-11-12 04:06 | EDM.PDOC ---
ED HPI GENERAL MEDICAL PROBLEM - General Chief Complaint: Chest Pain Stated Complaint: AMBULANCE Time Seen by Provider: 11/12/18 04:04 Source of Information: Reports: Patient History Limitations: Reports: No Limitations - History of Present Illness INITIAL COMMENTS - FREE TEXT/NARRATIVE: c/o mid sternal chest pain on-off past 3 weeks, not seen anyone for it thinking it's stress related. but manage to lower her stress at home by getting rid of some people. been Dx with HBP placed on lisinopril but only started taking it today since her BP was high. presently feeling bit better. Sternum Pain Score (Numeric/FACES): 3 - Related Data Allergies Allergy/AdvReac Type Severity Reaction Status Date / Time sertraline HCl [From Zoloft] Allergy Cannot Verified 11/12/18 03:39 Remember tramadol AdvReac Dizziness Verified 11/12/18 03:39 Home Meds: Home Meds Lisinopril 2.5 mg PO DAILY 11/12/18 [History] Past Medical History - Past Health History Medical/Surgical History: Denies Medical/Surgical History HEENT History: Reports: Impaired Vision Cardiovascular History: Reports: Hypertension Other Cardiovascular History: diet and exercise controlled Respiratory History: Reports: None Gastrointestinal History: Reports: None Genitourinary History: Reports: None 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: Musculoskeletal History: Reports: Back Pain, Chronic, Other (See Below) Other Musculoskeletal History: bursitis right shoulder Neurological History: Reports: Concussion, Migraines Psychiatric History: Reports: Anxiety, Depression Endocrine/Metabolic History: Reports: Diabetes, Type II Other Endocrine/Metabolic History: On metformin Hematologic History: Reports: None Immunologic History: Reports: None Oncologic (Cancer) History: Reports: None Dermatologic History: Reports: None - Infectious Disease History Infectious Disease History: Reports: None - Past Surgical History Musculoskeletal Surgical History: Reports: Other (See Below) Social & Family History - Family History Family Medical History: Noncontributory - Tobacco Use Smoking Status *Q: Current Every Day Smoker Years of Tobacco use: 33 Packs/Tins Daily: 1 - Caffeine Use Caffeine Use: Reports: Coffee Caffeine Use Comment: 6 cups per day. - Recreational Drug Use Recreational Drug Use: No ED ROS GENERAL - Review of Systems Review Of Systems: ROS reveals no pertinent complaints other than HPI. ED EXAM, GENERAL - Physical Exam Exam: See Below Exam Limited By: No Limitations General Appearance: Alert, WD/WN, No Apparent Distress, Anxious Ears: Hearing Grossly Normal Throat/Mouth: Normal Voice, No Airway Compromise Head: Atraumatic Neck: Non-Tender, Full Range of Motion Respiratory/Chest: No Respiratory Distress Cardiovascular: Regular Rate, Rhythm GI/Abdominal: Soft, Non-Tender Neurological: Alert, Oriented, Normal Cognition, Normal Gait, No Motor/Sensory Deficits Psychiatric: Flat Affect Skin Exam: Warm, Dry, Normal Color Lymphatic: No Adenopathy Course - Vital Signs Last Recorded V/S: Last Vital Signs Temp 36.9 C 11/12/18 03:20 Pulse 84 11/12/18 03:20 Resp 18 11/12/18 03:20 BP 136/78 11/12/18 03:20 Pulse Ox 96 11/12/18 03:20 - Orders/Labs/Meds Orders: Active Orders 24 hr Category Date Time Status EKG 12 Lead [EKG Documentation Completion] [RC] STAT Care 11/12/18 03:14 Active Labs: Laboratory Tests 11/12/18 11/12/18 11/12/18 Range/Units 03:22 03:22 03:25 WBC 10.4 H (5.0-10.0) 10^3/uL RBC 5.03 (4.2-5.4) 10^6/uL Hgb 15.6 D (12.0-16.0) g/dL Hct 45.9 (37.0-47.0) % MCV 91.3 (80-100) fL MCH 31.0 (27.0-34.0) pg MCHC 34.0 (33.0-35.0) g/dL Plt Count 248 (150-450) 10^3/uL Neut % (Auto) 55.0 (42.2-75.2) % Lymph % (Auto) 36.7 (20.5-50.1) % [place] % (Auto) 6.2 (2-8) % Eos % (Auto) 2.0 (1.0-3.0) % Baso % (Auto) 0.1 (0.0-1.0) % Sodium (135-145) mmol/L Potassium (3.6-5.0) mmol/L Chloride (101-111) mmol/L Carbon Dioxide (21.0-31.0) mmol/L Anion Gap BUN (7-18) mg/dL Creatinine (0.6-1.3) mg/dL Est Cr Clr Drug Dosing mL/min Estimated GFR (MDRD) BUN/Creatinine Ratio Glucose (74-105) mg/dL Calcium (8.4-10.2) mg/dl Total Bilirubin (0.2-1.0) mg/dL AST (10-42) IU/L ALT (10-60) IU/L Alkaline Phosphatase (42-121) IU/L Troponin I (0.00-0.02) ng/ml Total Protein (6.7-8.2) g/dl Albumin (3.2-5.5) g/dl Globulin Albumin/Globulin Ratio Urine Color Yellow (YELLOW) Urine Appearance Slightly cloudy (CLEAR) Urine pH 6.5 (5.0-9.0) Ur Specific [place] 1.010 (1.005-1.030) Urine Protein Negative (NEGATIVE) Urine Glucose (UA) 250 H (NEGATIVE) Urine Ketones Negative (NEGATIVE) Urine Occult Blood Moderate H (NEGATIVE) Urine Nitrite Negative (NEGATIVE) Urine Bilirubin Negative (NEGATIVE) Urine Urobilinogen 0.2 (0.2-1.0) mg/dL Ur Leukocyte Esterase Negative (NEGATIVE) Urine RBC 0-5 /HPF Urine WBC 0-5 (0-5/HPF) /HPF Ur Epithelial Cells Moderate H (NOT SEEN) /HPF Urine Bacteria Moderate H (0-FEW/HPF) /HPF Urine Opiates Screen Negative (NEGATIVE) Ur Oxycodone Screen Negative (NEGATIVE) Urine Methadone Screen Negative (NEGATIVE) Ur Barbiturates Screen Negative (NEGATIVE) U Tricyclic Antidepress Negative (NEGATIVE) Ur Phencyclidine Scrn Negative (NEGATIVE) Ur Amphetamine Screen Negative (NEGATIVE) U Methamphetamines Scrn Negative (NEGATIVE) Urine MDMA Screen Negative (NEGATIVE) U Benzodiazepines Scrn Negative (NEGATIVE) Urine Cocaine Screen Negative (NEGATIVE) U Marijuana (THC) Screen Negative (NEGATIVE) 11/12/18 Range/Units 03:25 WBC (5.0-10.0) 10^3/uL RBC (4.2-5.4) 10^6/uL Hgb (12.0-16.0) g/dL Hct (37.0-47.0) % MCV (80-100) fL MCH (27.0-34.0) pg MCHC (33.0-35.0) g/dL Plt Count (150-450) 10^3/uL Neut % (Auto) (42.2-75.2) % Lymph % (Auto) (20.5-50.1) % [place] % (Auto) (2-8) % Eos % (Auto) (1.0-3.0) % Baso % (Auto) (0.0-1.0) % Sodium 138 (135-145) mmol/L Potassium 3.7 (3.6-5.0) mmol/L Chloride 107 (101-111) mmol/L Carbon Dioxide 23.0 (21.0-31.0) mmol/L Anion Gap 11.7 BUN 14 (7-18) mg/dL Creatinine 0.8 (0.6-1.3) mg/dL Est Cr Clr Drug Dosing 73.46 mL/min Estimated GFR (MDRD) > 60 BUN/Creatinine Ratio 17.50 Glucose 212 H (74-105) mg/dL Calcium 8.8 (8.4-10.2) mg/dl Total Bilirubin 0.6 (0.2-1.0) mg/dL AST 20 (10-42) IU/L ALT 18 (10-60) IU/L Alkaline Phosphatase 63 (42-121) IU/L Troponin I < 0.02 (0.00-0.02) ng/ml Total Protein 7.7 (6.7-8.2) g/dl Albumin 4.1 (3.2-5.5) g/dl Globulin 3.6 Albumin/Globulin Ratio 1.14 Urine Color (YELLOW) Urine Appearance (CLEAR) Urine pH (5.0-9.0) Ur Specific [place] (1.005-1.030) Urine Protein (NEGATIVE) Urine Glucose (UA) (NEGATIVE) Urine Ketones (NEGATIVE) Urine Occult Blood (NEGATIVE) Urine Nitrite (NEGATIVE) Urine Bilirubin (NEGATIVE) Urine Urobilinogen (0.2-1.0) mg/dL Ur Leukocyte Esterase (NEGATIVE) Urine RBC /HPF Urine WBC (0-5/HPF) /HPF Ur Epithelial Cells (NOT SEEN) /HPF Urine Bacteria (0-FEW/HPF) /HPF Urine Opiates Screen (NEGATIVE) Ur Oxycodone Screen (NEGATIVE) Urine Methadone Screen (NEGATIVE) Ur Barbiturates Screen (NEGATIVE) U Tricyclic Antidepress (NEGATIVE) Ur Phencyclidine Scrn (NEGATIVE) Ur Amphetamine Screen (NEGATIVE) U Methamphetamines Scrn (NEGATIVE) Urine MDMA Screen (NEGATIVE) U Benzodiazepines Scrn (NEGATIVE) Urine Cocaine Screen (NEGATIVE) U Marijuana (THC) Screen (NEGATIVE) - Re-Assessments/Exams Free Text/Narrative Re-Assessment/Exam: 11/12/18 04:11 results discussed with pt who is feeling better now and more relaxed. Departure - Departure Time of Disposition: 04:12 Disposition: Home, Self-Care 01 Condition: Good Clinical Impression: Reaction, situational, acute, to stress, Atypical chest pain Instructions: Nonspecific Chest Pain Forms: ED Department Discharge Additional Instructions: 1) rest 2) see clinic Wednesday for STRESS TEST, ECHOCARDIOGRAM, HOLTER MONITOR 3) recheck as needed - My Orders Last 24 Hours: My Active Orders 11/12/18 03:14 EKG 12 Lead [EKG Documentation Completion] [RC] STAT - Assessment/Plan Last 24 Hours: My Active Orders 11/12/18 03:14 EKG 12 Lead [EKG Documentation Completion] [RC] STAT
[2018-11-12 04:23] VITALS: BP 121/76; PULSE 78
== END 2018-11-12 04:24 | disposition home or self-care (01) ==
LOC: DL.ED 04:06
DX: F43.0 Acute stress reaction (principal); R07.89 Other chest pain; F17.210 Nicotine dependence, cigarettes, uncomplicated; I10 Essential (primary) hypertension; E11.9 Type 2 diabetes mellitus without complications; Z79.899 Other long term (current) drug therapy; Z88.6 Allergy status to analgesic agent; Z88.8 Allergy status to other drugs, medicaments and biological substances
CPT/HCPCS: 36415; 80053; 80305-QW; 81001; 84484; 85025; 93005; 99285-25

== ENCOUNTER 2020-01-20 22:57 | Emergency (ER) | payer OTHER ==
--- NOTE | 2020-01-20 23:15 | CT ---
PROCEDURE INFORMATION: Exam: CT Head Without Contrast Exam date and time: 01/20/2020 11:03 PM Age: 49 years old Clinical indication: Other: Weakness; Additional info: L) sided weakness TECHNIQUE: Imaging protocol: Computed tomography of the head without contrast. Radiation optimization: All CT scans at this facility use at least one of these dose optimization techniques: automated exposure control; mA and/or kV adjustment per patient size (includes targeted exams where dose is matched to clinical indication); or iterative reconstruction. Other technique: STROKE PROTOCOL was implemented. COMPARISON: No relevant prior studies available. FINDINGS: Brain: Normal. No hemorrhage. Unremarkable white matter. No mass effect. Cerebral ventricles: No ventriculomegaly. Bones/joints: Unremarkable. No acute fracture. Paranasal sinuses: Visualized sinuses are unremarkable. No fluid levels. Mastoid air cells: Visualized mastoid air cells are well aerated. Soft tissues: Unremarkable. IMPRESSION: No acute intracranial abnormality. ASSESSMENT: ASPECTS ([place] Stroke Program Early CT Score) is 10.
--- NOTE | 2020-01-20 23:27 | EDM.PDOC ---
ED HPI GENERAL MEDICAL PROBLEM - General Chief Complaint: Neuro Symptoms/Deficits Stated Complaint: AMBULANCE Time Seen by Provider: 01/20/20 23:26 Source of Information: Reports: Patient History Limitations: Reports: No Limitations - History of Present Illness INITIAL COMMENTS - FREE TEXT/NARRATIVE: was fine all day till hour ago while doing dishes left arm got weak and tingli ng. has h/o bursitis with pain in left arm but it never got tingling. also whole body feels heavy. - Related Data Allergies Allergy/AdvReac Type Severity Reaction Status Date / Time sertraline HCl [From Zoloft] Allergy Cannot Verified 11/12/18 03:39 Remember tramadol AdvReac Dizziness Verified 11/12/18 03:39 Home Meds: Home Meds lisinopriL [Lisinopril] 5 mg PO DAILY 11/12/18 [History] Aspirin [Adult Low Dose Aspirin EC] 81 mg PO DAILY 12/21/18 [History] Etonogestrel [Nexplanon] 68 mg INJECT ASDIRECTED 12/21/18 [History] Oxybutynin Chloride 5 mg PO TID 12/21/18 [History] Simvastatin 20 mg PO BEDTIME 12/21/18 [History] Past Medical History - Past Health History Medical/Surgical History: Denies Medical/Surgical History HEENT History: Reports: Impaired Vision Cardiovascular History: Reports: Hypertension Other Cardiovascular History: diet and exercise controlled Respiratory History: Reports: None Gastrointestinal History: Reports: None Genitourinary History: Reports: None [employer] History: Reports: Musculoskeletal History: Reports: Back Pain, Chronic, Other (See Below) Other Musculoskeletal History: bursitis right shoulder Neurological History: Reports: Concussion, Migraines Psychiatric History: Reports: Anxiety, Depression Endocrine/Metabolic History: Reports: Diabetes, Type II Other Endocrine/Metabolic History: diet and exercise controlled Hematologic History: Reports: None Immunologic History: Reports: None Oncologic (Cancer) History: Reports: None Dermatologic History: Reports: None - Infectious Disease History Infectious Disease History: Reports: None - Past Surgical History Musculoskeletal Surgical History: Reports: Other (See Below) Social & Family History - Family History Family Medical History: No Pertinent Family History - Caffeine Use Caffeine Use: Reports: Coffee, Soda Caffeine Use Comment: 6 cups per day. ED ROS GENERAL - Review of Systems Review Of Systems: Comprehensive ROS is negative, except as noted in HPI. ED EXAM, NEURO - Physical Exam Exam: See Below Exam Limited By: No Limitations General Appearance: Alert, WD/WN, Mild Distress, Other (discomfort) Eye Exam: Bilateral Eye: PERRL (pupils ER @ 4mm) Ears: Hearing Grossly Normal Throat/Mouth: Normal Voice, No Airway Compromise Head Exam: Atraumatic Neck: Non-Tender, Full Range of Motion Respiratory/Chest: No Respiratory Distress Cardiovascular: Regular Rate, Rhythm GI/Abdominal: Soft, Non-Tender (Female) Exam: Deferred Rectal (Female) Exam: Deferred Neurological: Alert, No Motor/Sensory Deficits, Oriented x 3 Psychiatric: Flat Affect Skin Exam: Warm, Dry, Normal Color Course - Vital Signs Last Recorded V/S: Last Vital Signs Temp 37.0 C 01/20/20 23:54 Pulse 82 01/20/20 23:54 Resp 16 01/20/20 23:54 BP 122/77 01/20/20 23:54 Pulse Ox 97 01/20/20 23:54 - Orders/Labs/Meds Labs: Laboratory Tests 01/20/20 01/20/20 01/20/20 Range/Units 23:30 23:30 23:36 WBC 7.0 (5.0-10.0) 10^3/uL RBC 4.69 (4.2-5.4) 10^6/uL Hgb 14.7 (12.0-16.0) g/dL Hct 42.8 (37.0-47.0) % MCV 91.3 (80-100) fL MCH 31.3 (27.0-34.0) pg MCHC 34.3 (33.0-35.0) g/dL Plt Count 247 (150-450) 10^3/uL Neut % (Auto) 64.2 (42.2-75.2) % Lymph % (Auto) 30.7 (20.5-50.1) % Collin % (Auto) 4.1 (2-8) % Eos % (Auto) 0.9 L (1.0-3.0) % Baso % (Auto) 0.1 (0.0-1.0) % Sodium 136 (136-145) mmol/L Potassium 3.8 (3.5-5.1) mmol/L Chloride 103 (98-107) mmol/L Carbon Dioxide 24 (21-32) mmol/L Anion Gap 12.8 (7-13) mEq/L BUN 13 (7-18) mg/dL Creatinine 1.01 (0.55-1.02) mg/dL Est Cr Clr Drug Dosing TNP Estimated GFR (MDRD) 58 BUN/Creatinine Ratio 12.9 (No establ ref range) Glucose 258 H (74-99) mg/dL Calcium 8.5 (8.5-10.1) mg/dL Total Bilirubin 0.5 (0.2-1.0) mg/dL AST 16 (15-37) U/L ALT 24 (14-59) U/L Alkaline Phosphatase 83 (46-116) U/L Total Protein 6.9 (6.4-8.2) g/dL Albumin 3.3 L (3.4-5.0) g/dL Globulin 3.6 Albumin/Globulin Ratio 0.92 Urine Color Yellow (YELLOW) Urine Appearance Clear (CLEAR) Urine pH 7.0 (5.0-9.0) Ur Specific [place] 1.020 (1.005-1.030) Urine Protein Negative (NEGATIVE) Urine Glucose (UA) 250 H (NEGATIVE) Urine Ketones Negative (NEGATIVE) Urine Occult Blood Small H (NEGATIVE) Urine Nitrite Negative (NEGATIVE) Urine Bilirubin Negative (NEGATIVE) Urine Urobilinogen 1.0 (0.2-1.0) mg/dL Ur Leukocyte Esterase Negative (NEGATIVE) Urine RBC 5-10 H /HPF Urine WBC 0-5 (0-5/HPF) /HPF Ur Epithelial Cells Many H (NOT SEEN) /HPF Urine Bacteria Many H (0-FEW/HPF) /HPF Urine Opiates Screen (NEGATIVE) Ur Oxycodone Screen (NEGATIVE) Urine Methadone Screen (NEGATIVE) Ur Barbiturates Screen (NEGATIVE) U Tricyclic Antidepress (NEGATIVE) Ur Phencyclidine Scrn (NEGATIVE) Ur Amphetamine Screen (NEGATIVE) U Methamphetamines Scrn (NEGATIVE) Urine MDMA Screen (NEGATIVE) U Benzodiazepines Scrn (NEGATIVE) Urine Cocaine Screen (NEGATIVE) U Marijuana (THC) Screen (NEGATIVE) Ethyl Alcohol 4 (0) mg/dL 01/20/20 Range/Units 23:36 WBC (5.0-10.0) 10^3/uL RBC (4.2-5.4) 10^6/uL Hgb (12.0-16.0) g/dL Hct (37.0-47.0) % MCV (80-100) fL MCH (27.0-34.0) pg MCHC (33.0-35.0) g/dL Plt Count (150-450) 10^3/uL Neut % (Auto) (42.2-75.2) % Lymph % (Auto) (20.5-50.1) % Collin % (Auto) (2-8) % Eos % (Auto) (1.0-3.0) % Baso % (Auto) (0.0-1.0) % Sodium (136-145) mmol/L Potassium (3.5-5.1) mmol/L Chloride (98-107) mmol/L Carbon Dioxide (21-32) mmol/L Anion Gap (7-13) mEq/L BUN (7-18) mg/dL Creatinine (0.55-1.02) mg/dL Est Cr Clr Drug Dosing Estimated GFR (MDRD) BUN/Creatinine Ratio (No establ ref range) Glucose (74-99) mg/dL Calcium (8.5-10.1) mg/dL Total Bilirubin (0.2-1.0) mg/dL AST (15-37) U/L ALT (14-59) U/L Alkaline Phosphatase (46-116) U/L Total Protein (6.4-8.2) g/dL Albumin (3.4-5.0) g/dL Globulin Albumin/Globulin Ratio Urine Color (YELLOW) Urine Appearance (CLEAR) Urine pH (5.0-9.0) Ur Specific [place] (1.005-1.030) Urine Protein (NEGATIVE) Urine Glucose (UA) (NEGATIVE) Urine Ketones (NEGATIVE) Urine Occult Blood (NEGATIVE) Urine Nitrite (NEGATIVE) Urine Bilirubin (NEGATIVE) Urine Urobilinogen (0.2-1.0) mg/dL Ur Leukocyte Esterase (NEGATIVE) Urine RBC /HPF Urine WBC (0-5/HPF) /HPF Ur Epithelial Cells (NOT SEEN) /HPF Urine Bacteria (0-FEW/HPF) /HPF Urine Opiates Screen Negative (NEGATIVE) Ur Oxycodone Screen Negative (NEGATIVE) Urine Methadone Screen Negative (NEGATIVE) Ur Barbiturates Screen Negative (NEGATIVE) U Tricyclic Antidepress Negative (NEGATIVE) Ur Phencyclidine Scrn Negative (NEGATIVE) Ur Amphetamine Screen Negative (NEGATIVE) U Methamphetamines Scrn Negative (NEGATIVE) Urine MDMA Screen Negative (NEGATIVE) U Benzodiazepines Scrn Negative (NEGATIVE) Urine Cocaine Screen Negative (NEGATIVE) U Marijuana (THC) Screen Negative (NEGATIVE) Ethyl Alcohol (0) mg/dL Meds: Medications Discontinued Medications Generic Name Dose Route Start Last Admin Trade Name Freq PRN Reason Stop Dose Admin Hydroxyzine HCl 25 mg 01/21/20 00:49 Atarax PO 01/21/20 00:50 ONETIME ONE - Re-Assessments/Exams Free Text/Narrative Re-Assessment/Exam: 01/21/20 00:54 results discussed with pt who states has been under lot of stress at home. Departure - Departure Time of Disposition: 00:55 Disposition: Home, Self-Care 01 Condition: Good Clinical Impression: Reaction, situational, acute, to stress - Discharge Information Forms: ED Department Discharge Additional Instructions: 1) rest as much as possible 2) follow up at clinic rx given; hydroxyzine 25mg bid x 12 Sepsis Event Note (ED) - Focused Exam Vital Signs: Vital Signs Temp Pulse Resp BP Pulse Ox 01/20/20 23:54 37.0 C 82 16 122/77 97
[2020-01-21] LABS: ANION GAP 12.8 mEq/L (7-13); CHLORIDE,CL 103 mmol/L (98-107); SODIUM,NA 136 mmol/L (136-145)
[2020-01-21 00:02] VITALS: BP 122/77; PULSE 82
[2020-01-21] MEDS ORDERED: hydrOXYzine HCl 25 MG Tab PO ONE (00:49)
== END 2020-01-21 01:07 | disposition home or self-care (01) ==
LOC: DL.ED 22:57
DX: F43.20 Adjustment disorder, unspecified (principal); F43.9 Reaction to severe stress, unspecified; I10 Essential (primary) hypertension; E11.9 Type 2 diabetes mellitus without complications; Z88.8 Allergy status to other drugs, medicaments and biological substances; Z88.5 Allergy status to narcotic agent; Z79.82 Long term (current) use of aspirin; Z79.899 Other long term (current) drug therapy
CPT/HCPCS: 36415; 70450; 80053; 80305-QW; 80307; 81001; 85025; 99284-25; A9270-GY

== ENCOUNTER 2020-05-27 19:27 | Emergency (ER) | payer OTHER ==
[2020-05-27 19:41] VITALS: BP 130/80; PULSE 90
--- NOTE | 2020-05-27 20:27 | EDM.PDOC ---
ED HPI GENERAL MEDICAL PROBLEM - General Chief Complaint: Lower Extremity Injury/Pain Stated Complaint: FEET PAIN ON BOTH FEET Time Seen by Provider: 05/27/20 20:10 Source of Information: Reports: Patient, RN, RN Notes Reviewed History Limitations: Reports: No Limitations - History of Present Illness INITIAL COMMENTS - FREE TEXT/NARRATIVE: Patient presents to the ED via personal vehicle with complaints of pain to her bilateral distal feet. The patient reports a history of DM II, which is currently controlled with diet, as well as multiple ingrown toe repairs. The patient states she noticed open sores developing to the dorsal aspect of her left great toe and left fourth toe about one week ago; she noted an increase in pain to all of her toes at this same time. She states she has been performing Epsom salt soaks daily for her feet, as well as taking Aleve for the pain, which has offered her [id number] alleviation in symptoms. She denies fever, shaking chills, palpitations, loss of motor function, or loss of sensory function. She states she has not followed up with Podiatry since her last nail removal about five years ago. Bilateral Feet Pain Score (Numeric/FACES): 7 - Related Data Allergies Allergy/AdvReac Type Severity Reaction Status Date / Time sertraline HCl [From Zoloft] Allergy Cannot Verified 05/27/20 19:42 Remember tramadol AdvReac Dizziness Verified 05/27/20 19:42 Home Meds: Home Meds lisinopriL [Lisinopril] 5 mg PO DAILY 11/12/18 [History] Aspirin [Adult Low Dose Aspirin EC] 81 mg PO DAILY 12/21/18 [History] Etonogestrel [Nexplanon] 68 mg INJECT ASDIRECTED 12/21/18 [History] Oxybutynin Chloride 5 mg PO TID 12/21/18 [History] Simvastatin 20 mg PO BEDTIME 12/21/18 [History] hydrOXYzine HCL [Atarax] 25 mg PO BID 05/27/20 [History] Past Medical History - Past Health History Medical/Surgical History: Denies Medical/Surgical History HEENT History: Reports: Impaired Vision Cardiovascular History: Reports: High Cholesterol, Hypertension Other Cardiovascular History: diet and exercise controlled Respiratory History: Reports: None Gastrointestinal History: Reports: None Genitourinary History: Reports: None [employer] History: Reports: Musculoskeletal History: Reports: Back Pain, Chronic, Other (See Below) Other Musculoskeletal History: bursitis right shoulder Neurological History: Reports: Concussion, Migraines Psychiatric History: Reports: Anxiety, Depression Endocrine/Metabolic History: Reports: Diabetes, Type II Other Endocrine/Metabolic History: diet and exercise controlled Hematologic History: Reports: None Immunologic History: Reports: None Oncologic (Cancer) History: Reports: None Dermatologic History: Reports: None - Infectious Disease History Infectious Disease History: Reports: None - Past Surgical History Musculoskeletal Surgical History: Reports: Other (See Below) Other Musculoskeletal Surgeries/Procedures:: fx nasal bone Social & Family History - Family History Family Medical History: No Pertinent Family History - Tobacco Use Tobacco Use Status *Q: Current Every Day Tobacco User Years of Tobacco use: 36 Packs/Tins Daily: 1 Second Hand Smoke Exposure: Yes - Caffeine Use Caffeine Use: Reports: Coffee Caffeine Use Comment: 6 cups per day. - Recreational Drug Use Recreational Drug Use: No Review of Systems - Review of Systems Review Of Systems: Comprehensive ROS is negative, except as noted in HPI. ED EXAM, GENERAL - Physical Exam Exam: See Below Exam Limited By: No Limitations General Appearance: Alert, No Apparent Distress Eye Exam: Bilateral Eye: EOMI, Normal Inspection, PERRL (3mm) Throat/Mouth: Normal Inspection, Normal Voice, No Airway Compromise Head: Atraumatic, Normocephalic Neck: Normal Inspection, Supple, Non-Tender, Full Range of Motion Respiratory/Chest: No Respiratory Distress, Lungs Clear, Normal Breath Sounds, No Accessory Muscle Use, Chest Non-Tender Cardiovascular: Normal Peripheral Pulses, Regular Rate, Rhythm, No Edema, No Gallop, No JVD, No Murmur, No Rub Peripheral Pulses: 2+: Radial (L), Radial (R), Posterior Tibial (L), Posterior Tibial (R), Dorsalis Pedis (L), Dorsalis Pedis (R) Extremities: Normal Range of Motion, No Pedal Edema, Normal Capillary Refill, Leg Pain (To distal aspect of toes, bilaterally), Increased Warmth, Redness (To distal, dorsal aspect of left great toe and left fourth toe). No: Limited Range of Motion, Mottled, Pallor Neurological: Alert, Oriented, CN II-XII Intact, Normal Cognition, No Motor/Sensory Deficits, Abnormal Gait (Left, limping gait) Psychiatric: Normal Affect, Normal Mood Skin Exam: Warm, Dry, Erythema (To distal, dorsal aspect of left great toe and left fourth toe), Increased Warmth (To left great and fourth toes). No: Jaundice, Mottled, Pallor, Petechiae Course - Vital Signs Last Recorded V/S: Last Vital Signs Temp 98.5 F 05/27/20 19:35 Pulse 90 05/27/20 19:35 Resp 18 05/27/20 19:35 BP 130/80 05/27/20 19:35 Pulse Ox 98 05/27/20 19:35 - Orders/Labs/Meds Meds: Medications Discontinued Medications Generic Name Dose Route Start Last Admin Trade Name Freq PRN Reason Stop Dose Admin Clindamycin HCl 300 mg 05/27/20 21:11 05/27/20 21:26 Clindamycin Hcl 150 Mg Cap PO 05/27/20 21:12 300 mg ONETIME ONE Administration Doxycycline Monohydrate 100 mg 05/27/20 21:11 05/27/20 21:26 Doxycycline Monohydrate 100 Mg Cap PO 05/27/20 21:12 100 mg ONETIME ONE Administration - Radiology Interpretation Free Text/Narrative:: [facility] Final Radiology Report Call: [phone] assistance Online chat: [email or web address] Name: YOVANNY CHU Age: 49Years F Date: 05/27/2020 SSN: -- : [id number] Study: CR FOOT 2V LT Requesting Physician: Tracy Michelle Images: 2 Addl Studies: Provided Clinical History: Open sore to dorsal great toe and fourth digit Contrast: Contrast Medium: Contrast Amount: Contrast Method: CONFIDENTIALITY STATEMENT This report is intended only for use by the referring physician, and only in accordance with law. If you received this in error, call [phone]. Page 1 of 1 PROCEDURE INFORMATION: Exam: XR Left Foot Exam date and time: 05/27/2020 8:28 PM Age: 49 years old Clinical indication: Other: Open sore; Additional info: Open sore to dorsal great toe and fourth digit TECHNIQUE: Imaging protocol: XR Left foot. Views: 1 or 2 views. COMPARISON: CR Foot Comp Min 3V Lt 08/17/2013 12:10 AM FINDINGS: Bones/joints: No acute fracture. No dislocation. Normal bone mineralization. No joint effusion. Joint spaces are maintained. Small plantar calcaneal bone spur. No lytic or sclerotic bony lesions. Soft tissues: Mild soft tissue swelling the 1st, 3rd, 4th, and 5th toes. No soft tissue emphysema. No radiopaque foreign body. IMPRESSION: 1. No evidence for osteomyelitis. MRI without and with contrast may be obtained if there is continuing clinical concern for osteomyelitis. If the patient has any contradiction for MRI, 3 phase bone scan in conjunction with white blood cell scan may be obtained. 2. Mild soft tissue swelling the 1st, 3rd, 4th, and 5th toes. No soft tissue emphysema. Thank you for allowing us to participate in the care of your patient. Dictated and Authenticated by: Yue Aguayo MD 05/27/2020 8:54 PM Central Time ([place] & [place]) - Re-Assessments/Exams Free Text/Narrative Re-Assessment/Exam: 05/27/20 Xray of left foot unremarkable for osteo, recommend MRI should symptoms persist. Case discussed with Dr. Mal Pereira who states he will see patient in clinic this week. Will treat infection with Clindamycin and Doxycycline. Patient verbalized understanding and agreement with the plan of care. Departure - Departure Time of Disposition: 21:14 Disposition: Home, Self-Care 01 Condition: Good Clinical Impression: Diabetic foot infection - Discharge Information *PRESCRIPTION DRUG MONITORING PROGRAM REVIEWED*: Not Applicable *COPY OF PRESCRIPTION DRUG MONITORING REPORT IN PATIENT DONA: Not Applicable Forms: ED Department Discharge Additional Instructions: Rx: Clindamycin Rx: Doxycycline 1.) Take all of your antibiotics until gone. 2.) Follow up with Dr. Mal Pereira in podiatry tomorrow to schedule an appointment, his number is: [phone] ([facility]) 3.) You may take acetaminophen (Tylenol) 650mg every six hours, as pain persists. You may take ibuprofen (Advil/Motrin) 400mg every six hours, as pain persists. You may stagger these medications so you are taking a dose every three hours. Sepsis Event Note (ED) - Evaluation Sepsis Screening Result: No Definite Risk - Focused Exam Vital Signs: Vital Signs Temp Pulse Resp BP Pulse Ox 05/27/20 19:35 98.5 F 90 18 130/80 98
--- NOTE | 2020-05-27 20:54 | CR ---
PROCEDURE INFORMATION: Exam: XR Left Foot Exam date and time: 05/27/2020 8:28 PM Age: 49 years old Clinical indication: Other: Open sore; Additional info: Open sore to dorsal great toe and fourth digit TECHNIQUE: Imaging protocol: XR Left foot. Views: 1 or 2 views. COMPARISON: CR Foot Comp Min 3V Lt 08/17/2013 12:10 AM FINDINGS: Bones/joints: No acute fracture. No dislocation. Normal bone mineralization. No joint effusion. Joint spaces are maintained. Small plantar calcaneal bone spur. No lytic or sclerotic bony lesions. Soft tissues: Mild soft tissue swelling the 1st, 3rd, 4th, and 5th toes. No soft tissue emphysema. No radiopaque foreign body. IMPRESSION: 1. No evidence for osteomyelitis. MRI without and with contrast may be obtained if there is continuing clinical concern for osteomyelitis. If the patient has any contradiction for MRI, 3 phase bone scan in conjunction with white blood cell scan may be obtained. 2. Mild soft tissue swelling the 1st, 3rd, 4th, and 5th toes. No soft tissue emphysema.
[2020-05-27] MEDS ORDERED: Doxycycline Monohydrate 100 MG Cap PO ONE (21:11)
[2020-05-27] MEDS ORDERED: Clindamycin HCl 150 MG Cap PO ONE (21:11)
== END 2020-05-27 21:30 | disposition home or self-care (01) ==
LOC: DL.ED 19:27
DX: E11.628 Type 2 diabetes mellitus with other skin complications (principal); L08.9 Local infection of the skin and subcutaneous tissue, unspecified; E78.00 Pure hypercholesterolemia, unspecified; I10 Essential (primary) hypertension; Z88.8 Allergy status to other drugs, medicaments and biological substances; Z88.5 Allergy status to narcotic agent; Z79.82 Long term (current) use of aspirin; Z79.899 Other long term (current) drug therapy
CPT/HCPCS: 73620-LT; 99283; A9270-GY

== ENCOUNTER 2020-12-26 01:41 | Emergency (ER) | payer OTHER ==
--- NOTE | 2020-12-26 02:04 | EDM.PDOC ---
ED HPI GENERAL MEDICAL PROBLEM - General Chief Complaint: Chest Pain Stated Complaint: ER Time Seen by Provider: 12/26/20 01:59 Source of Information: Reports: Patient, EMS, Old Records, RN, RN Notes Reviewed History Limitations: Reports: No Limitations - History of Present Illness INITIAL COMMENTS - FREE TEXT/NARRATIVE: Robin is a 50 y/o female who presents to the ED via [facility] with complaints of left lateral chest pain. The patient reports her pain began as a muscle ache earlier this evening, however approximately 40 minutes prior to her arrival the pain became sharp and cramping. She notes the pain radiates through her chest into her back. She denies injury to the area, as well as overuse of the chest muscles. She denies falls. She states the pain is exacerbated by movement and deep breathing. She denies fever, shaking chills, palpitations, dyspepsia, nausea, vomiting, or abdominal pain. The patient has taken no medications or performed any supportive cares for her symptoms. She attests to smoking 1/2 pack of cigarettes per day; she denies alcohol or recreational drug use. Left Chest Pain Score (Numeric/FACES): 3 - Related Data Allergies Allergy/AdvReac Type Severity Reaction Status Date / Time sertraline HCl [From Zoloft] Allergy Cannot Verified 12/26/20 01:51 Remember tramadol AdvReac Dizziness Verified 12/26/20 01:51 Home Meds: Home Meds hydrOXYzine HCL [Atarax] 25 mg PO BID PRN 05/27/20 [History] Past Medical History - Past Health History Medical/Surgical History: Denies Medical/Surgical History HEENT History: Reports: Impaired Vision Cardiovascular History: Reports: High Cholesterol, Hypertension Other Cardiovascular History: diet and exercise controlled Respiratory History: Reports: None Gastrointestinal History: Reports: None Genitourinary History: Reports: None [employer]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: Musculoskeletal History: Reports: Back Pain, Chronic, Other (See Below) Other Musculoskeletal History: bursitis right shoulder Neurological History: Reports: Concussion, Migraines Psychiatric History: Reports: Anxiety, Depression Endocrine/Metabolic History: Reports: Diabetes, Type II Other Endocrine/Metabolic History: diet and exercise controlled Hematologic History: Reports: None Immunologic History: Reports: None Oncologic (Cancer) History: Reports: None Dermatologic History: Reports: None - Infectious Disease History Infectious Disease History: Reports: None - Past Surgical History Musculoskeletal Surgical History: Reports: Other (See Below) Other Musculoskeletal Surgeries/Procedures:: fx nasal bone Social & Family History - Family History Family Medical History: No Pertinent Family History - Tobacco Use Tobacco Use Status *Q: Current Every Day Tobacco User Years of Tobacco use: 35 Packs/Tins Daily: 1 Second Hand Smoke Exposure: Yes - Caffeine Use Caffeine Use: Reports: Coffee Caffeine Use Comment: 6 cups per day. - Recreational Drug Use Recreational Drug Use: No ED ROS GENERAL - Review of Systems Review Of Systems: Comprehensive ROS is negative, except as noted in HPI. ED EXAM, GENERAL - Physical Exam Exam: See Below Exam Limited By: No Limitations General Appearance: Alert, Mild Distress (Pain to left lateral chest) Eye Exam: Bilateral Eye: EOMI, PERRL (3mm) Ears: Normal External Exam, Normal Canal, Hearing Grossly Normal, Normal TMs Nose: Normal Inspection, Normal Mucosa, No Blood Throat/Mouth: Normal Inspection, Normal Oropharynx, Normal Voice, No Airway Compromise Head: Atraumatic, Normocephalic Neck: Normal Inspection, Supple, Non-Tender, Full Range of Motion Respiratory/Chest: No Respiratory Distress, Lungs Clear, Normal Breath Sounds, No Accessory Muscle Use, Splinting. No: Chest Non-Tender (To palpation of left chest), Crackles, Rales, Rhonchi, Wheezing, Stridor, Retractions Cardiovascular: Normal Peripheral Pulses, Regular Rate, Rhythm, No Edema, No Gallop, No JVD, No Murmur, No Rub Peripheral Pulses: 2+: Radial (L), Radial (R) GI/Abdominal: Normal Bowel Sounds, Soft, Non-Tender, No Distention, No Abnormal Bruit, No Mass, Pelvis Stable (Female) Exam: Deferred Rectal (Female) Exam: Deferred Extremities: Normal Inspection, Normal Range of Motion, Normal Capillary Refill Neurological: Alert, Oriented, CN II-XII Intact, Normal Cognition, No Motor/Sensory Deficits Psychiatric: Normal Affect, Anxious Skin Exam: Warm, Dry, Intact, Normal Color, No Rash. No: Cyanosis, Ecchymosis, Erythema, Jaundice, Mottled, Pallor, Petechiae #1 Interpretation EKG Date: 12/26/20 Time: 01:45 Rhythm: NSR Rate (Beats/Min): 97 Zanoni: Normal P-Wave: Present QRS: Normal ST-T: Normal QT: Normal NC/PQ Interval: 0.16 Comparison: No Change EKG Interpretation Comments: NSR; q-waves in III and aVF; No evidence of acute myocardial ischemia Course - Vital Signs Last Recorded V/S: Last Vital Signs Temp 98.4 F 12/26/20 03:00 Pulse 80 12/26/20 03:00 Resp 16 12/26/20 03:00 BP 130/84 12/26/20 03:00 Pulse Ox 96 12/26/20 03:00 - Orders/Labs/Meds Labs: Laboratory Tests 12/26/20 12/26/20 Range/Units 02:03 02:03 WBC 9.0 (5.0-10.0) 10^3/uL RBC 4.68 (4.2-5.4) 10^6/uL Hgb 14.5 (12.0-16.0) g/dL Hct 42.2 (37.0-47.0) % MCV 90.2 (80-100) fL MCH 31.0 (27.0-34.0) pg MCHC 34.4 (33.0-35.0) g/dL Plt Count 241 (150-450) 10^3/uL Neut % (Auto) 64.5 (42.2-75.2) % Lymph % (Auto) 26.7 (20.5-50.1) % Banner % (Auto) 7.0 (2-8) % Eos % (Auto) 1.6 (1.0-3.0) % Baso % (Auto) 0.2 (0.0-1.0) % Sodium 137 (136-145) mmol/L Potassium 3.8 (3.5-5.1) mmol/L Chloride 104 (98-107) mmol/L Carbon Dioxide 23 (21-32) mmol/L Anion Gap 13.8 H (7-13) mEq/L BUN 12 (7-18) mg/dL Creatinine 0.85 (0.55-1.02) mg/dL Est Cr Clr Drug Dosing 67.61 mL/min Estimated GFR (MDRD) > 60 BUN/Creatinine Ratio 14.1 (No establ ref range) Glucose 230 H (70-99) mg/dL Calcium 8.6 (8.5-10.1) mg/dL Total Bilirubin 0.4 (0.2-1.0) mg/dL AST 12 L (15-37) U/L ALT 24 (14-59) U/L Alkaline Phosphatase 84 (46-116) U/L Troponin I High Sens 4 (<=51) pg/mL Total Protein 7.0 (6.4-8.2) g/dL Albumin 3.5 (3.4-5.0) g/dL Globulin 3.5 Albumin/Globulin Ratio 1.0 Meds: Medications Discontinued Medications Generic Name Dose Route Start Last Admin Trade Name Amy PRN Reason Stop Dose Admin Acetaminophen 1,000 mg 12/26/20 02:13 12/26/20 02:40 Acetaminophen 500 Mg Tab PO 12/26/20 02:14 1,000 mg ONETIME ONE Administration Orphenadrine Citrate 60 mg 12/26/20 03:41 12/26/20 03:52 Orphenadrine 60 Mg/2 Ml Inj IM 12/26/20 03:42 60 mg ONETIME ONE Administration - Re-Assessments/Exams Free Text/Narrative Re-Assessment/Exam: 12/26/20 Patient states her pain is improving following dose of acetaminophen; able to ambulate to the bathroom without complication. She is requesting a "work slip" for the next four days. Findings of examination and lab work reviewed with patient. Supportive cares for non-specific chest pain discussed. Patient instructed to follow up with primary care provider regarding todays visit. Red flag signs and symptoms which would warrant immediate reevaluation reviewed. Patient verbalized understanding and agreement with the plan of care. Departure - Departure Time of Disposition: 03:43 Disposition: Home, Self-Care 01 Condition: Good Clinical Impression: Nonspecific chest pain, Muscle spasm Instructions: Muscle Cramps and Spasms, Nonspecific Chest Pain, Adult Referrals: Boom Baron [Primary Care Provider] - Forms: ED Department Discharge Additional Instructions: 1.) You may take ibuprofen (Advil/Motrin) 400mg every six hours, as pain and swelling persist. You may also take acetaminophen (Tylenol) 650mg every six hours, as pain persists. You may stagger these medications so you are taking a dose of either every three hours. 2.) You may apply cold compresses to the area as pain and swelling persist, 20 minutes every hour. 3.) You may apply BioFreeze (or a similar ointment/cream) to the affected area, as pain persists. 4.) Follow up with your primary care provider in 3-5 days regarding today's visit. Sepsis Event Note (ED) - Focused Exam Vital Signs: Vital Signs Temp Pulse Resp BP Pulse Ox 12/26/20 03:00 98.4 F 80 16 130/84 96 12/26/20 01:43 98.9 F 96 18 134/98 H 98
[2020-12-26] MEDS ORDERED: Acetaminophen 500 MG Tab PO ONE (02:13)
[2020-12-26 02:29] LABS: ANION GAP 13.8 mEq/L (7-13); CHLORIDE,CL 104 mmol/L (98-107); SODIUM,NA 137 mmol/L (136-145)
[2020-12-26 03:21] VITALS: BP 130/84; PULSE 80
[2020-12-26] MEDS ORDERED: Orphenadrine 60 MG/2 ML Inj IM ONE (03:41)
== END 2020-12-26 04:04 | disposition home or self-care (01) ==
LOC: DL.ED 01:41
DX: R07.9 Chest pain, unspecified (principal); M62.838 Other muscle spasm; I10 Essential (primary) hypertension; E11.9 Type 2 diabetes mellitus without complications; F17.210 Nicotine dependence, cigarettes, uncomplicated; Z88.8 Allergy status to other drugs, medicaments and biological substances; Z88.5 Allergy status to narcotic agent; Z79.899 Other long term (current) drug therapy
CPT/HCPCS: 36415; 80053; 84484; 85025; 93005; 96372; 99285-25; A9270-GY; J2360

== ENCOUNTER 2021-10-10 22:23 | Emergency (ER) | payer OTHER ==
[2021-10-10] MEDS ORDERED: Rabies Vaccine (Avian) 2.5 Unit Inj Kit ONE (23:12)
[2021-10-11 02:15] VITALS: BP 142/81; PULSE 80
== END 2021-10-10 23:55 | disposition home or self-care (01) ==
LOC: DL.ED 22:23
DX: S61.255A Open bite of left ring finger without damage to nail, initial encounter (principal); I10 Essential (primary) hypertension; E11.9 Type 2 diabetes mellitus without complications; Z23 Encounter for immunization; Z88.8 Allergy status to other drugs, medicaments and biological substances; Z88.5 Allergy status to narcotic agent; Z86.16 Personal history of COVID-19; Z79.899 Other long term (current) drug therapy; W53.01XA Bitten by mouse, initial encounter
CPT/HCPCS: 90471; 90675; 99283

== ENCOUNTER 2021-12-05 11:10 | Emergency (ER) | payer OTHER ==
[~2021-12-05 11:10] MED LIST: Sodium Chloride 0.9% 1,000 ML IV ONE
[2021-12-29 15:44] LABS: ANION GAP 11.3 mEq/L (7-13); CHLORIDE,CL 104 mmol/L (98-107); SODIUM,NA 137 mmol/L (136-145)
[2021-12-29 15:45] LABS: ESTIMATED GFR 91 mL/min (>=60)
[2021-12-29 15:47] LABS: CORONAVIRUS COVID-19 NAA NEGATIVE (NEGATIVE)
== END 2021-12-06 01:00 | disposition home or self-care (01) ==
LOC: DL.ED 11:10
DX: R07.89 Other chest pain (principal); E11.65 Type 2 diabetes mellitus with hyperglycemia; I10 Essential (primary) hypertension
CPT/HCPCS: 0240U; 36415; 70450; 71045; 80053; 82947; 84484; 85025; 85379; 85610; 96360; 99285; 93005; J7030

== ENCOUNTER 2022-09-26 16:04 | Emergency (ER) | payer OTHER ==
[2022-09-26 16:27] VITALS: BP 160/77; PULSE 103
[2022-09-26] MEDS: Dexamethasone 4 MG/ML SDV IM ONE (16:31)
== END 2022-09-26 16:39 | disposition home or self-care (01) ==
LOC: DL.ED 16:04
DX: M54.2 Cervicalgia (principal); E11.9 Type 2 diabetes mellitus without complications; E78.00 Pure hypercholesterolemia, unspecified; I10 Essential (primary) hypertension; Z88.5 Allergy status to narcotic agent; Z88.8 Allergy status to other drugs, medicaments and biological substances; Z86.16 Personal history of COVID-19
CPT/HCPCS: 96372; 99282; 99283; J1100

== ENCOUNTER 2023-02-13 15:58 | Emergency (ER) | payer OTHER ==
[2023-02-13 15:56] VITALS: BP 132/78; PULSE 99
[~2023-02-13 15:58] MED LIST changes: +Acetaminophen 500 MG Tab PO ONE; -Sodium Chloride 0.9% 1,000 ML IV ONE
== END 2023-02-13 16:27 | disposition home or self-care (01) ==
LOC: DL.ED 15:58
DX: S82.001A Unspecified fracture of right patella, initial encounter for closed fracture (principal); I10 Essential (primary) hypertension; E11.9 Type 2 diabetes mellitus without complications; Z86.16 Personal history of COVID-19; Z79.84 Long term (current) use of oral hypoglycemic drugs; Z79.899 Other long term (current) drug therapy; Z79.82 Long term (current) use of aspirin; Z88.8 Allergy status to other drugs, medicaments and biological substances; W01.0XXA Fall on same level from slipping, tripping and stumbling without subsequent striking against object, initial encounter
CPT/HCPCS: 73562; 99283; A9270

== ENCOUNTER 2023-05-17 23:28 | Emergency (ER) | payer OTHER ==
[2023-05-17 23:49] LABS: BASOPHILS PERCENT AUTO 0.2 % (0.0-1.0); EOSINOPHILS PERCENT AUTO 2.9 % (1.0-3.0); HEMATOCRIT 44.4 % (37.0-47.0); HEMOGLOBIN 15.1 g/dL (12.0-16.0); MEAN CORPUSCULAR HEMOGLOBIN 30.3 pg (27.0-34.0); MONOCYTES PERCENT AUTO 5.5 % (2-8); NEUTROPHILS PERCENT AUTO 60.4 % (42.2-75.2); PLATELET COUNT,PLT 234 10^3/uL (150-450); RED BLOOD CELL COUNT 4.99 10^6/uL (4.2-5.4); WHITE BLOOD CELL COUNT,WBC 8.6 10^3/uL (5.0-10.0)
[2023-05-18 00:04] LABS: PTT,PARTIAL THROMBOPLSTIN TIME 23.4 SEC (22.0-34.0)
[2023-05-18 00:07] LABS: A/G RATIO 1.1; ALANINE AMINOTRANSFERASE,ALT 20 U/L (14-59); ALBUMIN 3.7 g/dL (3.4-5.0); ALKALINE PHOSPHATASE 74 U/L (46-116); ANION GAP 13.9 mEq/L (7-13); ASPARTATE AMNIOTRANSFERASE,AST 16 U/L (15-37); BILIRUBIN TOTAL 0.6 mg/dL (0.2-1.0); BLOOD UREA NITROGEN,BUN 9 mg/dL (7-18); BUN/CREATININE RATIO 12.2 (No establ ref range); CALCIUM 8.5 mg/dL (8.5-10.1); CARBON DIOXIDE,CO2 26 mmol/L (21-32); CHLORIDE,CL 103 mmol/L (98-107); CREATININE 0.74 mg/dL (0.55-1.02); EST CRCL DRUG DOSING (CG) 79.11 mL/min; GLUCOSE RANDOM 150 mg/dL (70-99); POTASSIUM,K 3.9 mmol/L (3.5-5.1); PROTEIN TOTAL,TP 7.1 g/dL (6.4-8.2); SODIUM,NA 139 mmol/L (136-145)
[2023-05-18 00:11] LABS: ESTIMATED GFR 97 mL/min (>=60); ETHANOL BLOOD MEDICAL < 3 mg/dL (0)
[2023-05-18 00:29] LABS: AMPHETAMINES,URINE NEGATIVE (NEGATIVE); BARBITURATES,URINE NEGATIVE (NEGATIVE); BENZODIAZEPINE,URINE NEGATIVE (NEGATIVE); MDMA (ECSTASY), URINE NEGATIVE (NEGATIVE); METHADONE,URINE NEGATIVE (NEGATIVE); METHAMPHETAMINES,URINE NEGATIVE (NEGATIVE); OPIATES,URINE NEGATIVE (NEGATIVE); OXYCODONE,URINE NEGATIVE (NEGATIVE); PHENCYCLIDINE,URINE NEGATIVE (NEGATIVE); TCA,URINE NEGATIVE (NEGATIVE)
[2023-05-18 00:30] LABS: APPEARANCE,URINE CLEAR (CLEAR); BILIRUBIN,URINE NEGATIVE (NEGATIVE); COLOR,URINE YELLOW (YELLOW); GLUCOSE,URINE NEGATIVE (NEGATIVE); KETONES,URINE NEGATIVE (NEGATIVE); LEUKOCYTE ESTERASE,URINE NEGATIVE (NEGATIVE); NITRITE,URINE NEGATIVE (NEGATIVE); OCCULT BLOOD,URINE TRACE-INTACT (NEGATIVE); PH,URINE 7.5 (5.0-9.0); PROTEIN,URINE NEGATIVE (NEGATIVE); UROBILINOGEN,URINE 0.2 mg/dL (0.2-1.0)
[2023-05-18] MEDS: Aspirin 81 MG Tab.Chew PO ONE ×2 (00:34)
[2023-05-18] MEDS: Sodium Chloride 0.9% 10 ML Syringe FLUSH PRN (00:35)
[2023-05-18] MEDS: Sodium Chloride 0.9% 1,000 ML IV ONE (00:35)
[2023-05-18] MEDS: Meclizine 12.5 MG Tab PO ONE (00:35)
[2023-05-18] MEDS: Ondansetron 4 MG in Sodium Chloride 0.9% 50 ML IV ONE (00:35)
[2023-05-18 00:41] LABS: BACTERIA,URINE FEW /HPF (0-FEW/HPF); EPITHELIAL CELLS,URINE FEW /HPF (NOT SEEN); RBC,URINE 0-5 /HPF (0-5); WBC,URINE NOT SEEN /HPF (0-5/HPF)
[2023-05-18] MEDS: Iopamidol 755 Mg/ML 100 ML Bottle IVPUSH ONE (01:05)
[2023-05-18] MEDS: Iopamidol 612 MG/ML 100 ML Bottle IVPUSH ONE (01:08)
[2023-05-18 02:47] VITALS: BP 141/87; PULSE 69
== END 2023-05-18 02:54 | disposition other institution (70) ==
LOC: DL.ED 23:28
DX: R53.1 Weakness (principal); I10 Essential (primary) hypertension; E78.00 Pure hypercholesterolemia, unspecified; E11.9 Type 2 diabetes mellitus without complications; F17.210 Nicotine dependence, cigarettes, uncomplicated; Z79.82 Long term (current) use of aspirin; Z79.84 Long term (current) use of oral hypoglycemic drugs; Z79.899 Other long term (current) drug therapy; Z88.5 Allergy status to narcotic agent; Z88.8 Allergy status to other drugs, medicaments and biological substances
CPT/HCPCS: 36415; 70450; 70496; 70498; 80053; 80305; 80307; 81001; 84484; 85025; 85610; 85730; 93005; 93010; 96361; 96374; 99285; 99291; A9270; J2405; J3490; J7030; Q9967; 70460

== ENCOUNTER 2023-12-11 00:44 | Emergency (ER) | payer OTHER ==
[2023-12-11 01:15] VITALS: BP 155/92; PULSE 99
[2023-12-11] MEDS: Albuterol/Ipratropium 3.0-0.5 MG/3 ML Neb Soln NEB PRN (01:30)
[2023-12-11] MEDS: predniSONE 20 MG Tab PO ONE (01:30)
[2023-12-11 01:55] LABS: BASOPHILS PERCENT AUTO 0.2 % (0.0-1.0); EOSINOPHILS PERCENT AUTO 2.4 % (1.0-3.0); HEMOGLOBIN 14.7 g/dL (12.0-16.0); LYMPHOCYTES PERCENT AUTO 41.3 % (20.5-50.1); MEAN CORPUSCULAR HEMOGLOBIN 30.2 pg (27.0-34.0); MEAN CORPUSCULAR HGB CONC 33.4 g/dL (33.0-35.0); MEAN CORPUSCULAR VOLUME 90.5 fL (80-100); MONOCYTES PERCENT AUTO 5.1 % (2-8); PLATELET COUNT,PLT 245 10^3/uL (150-450); RED BLOOD CELL COUNT 4.86 10^6/uL (4.2-5.4); WHITE BLOOD CELL COUNT,WBC 11.8 10^3/uL (5.0-10.0)
[2023-12-11 02:17] LABS: A/G RATIO 0.9; ALBUMIN 3.6 g/dL (3.4-5.0); ANION GAP 14.8 mEq/L (7-13); BILIRUBIN TOTAL 0.5 mg/dL (0.2-1.0); BUN/CREATININE RATIO 16.2 (No establ ref range); CALCIUM 8.9 mg/dL (8.5-10.1); CREATININE 0.74 mg/dL (0.55-1.02); EST CRCL DRUG DOSING (CG) 75.05 mL/min; MAGNESIUM 2.3 mg/dL (1.8-2.4); POTASSIUM,K 3.8 mmol/L (3.5-5.1); PROTEIN TOTAL,TP 7.5 g/dL (6.4-8.2)
[2023-12-11 02:22] LABS: INR 0.9 (0.9-1.2); PROTHROMBIN TIME 9.4 SEC (9.0-12.0); PTT,PARTIAL THROMBOPLSTIN TIME 25.2 SEC (22.0-34.0)
[2023-12-11 02:29] LABS: APPEARANCE,URINE CLEAR (CLEAR); BILIRUBIN,URINE NEGATIVE (NEGATIVE); COLOR,URINE YELLOW (YELLOW); GLUCOSE,URINE NEGATIVE (NEGATIVE); KETONES,URINE NEGATIVE (NEGATIVE); LEUKOCYTE ESTERASE,URINE NEGATIVE (NEGATIVE); NITRITE,URINE NEGATIVE (NEGATIVE); OCCULT BLOOD,URINE SMALL (NEGATIVE); PROTEIN,URINE NEGATIVE (NEGATIVE); UROBILINOGEN,URINE 0.2 mg/dL (0.2-1.0)
[2023-12-11] MEDS: Azithromycin 250 MG Tab PO ONE (03:32)
[2023-12-11] MEDS: Sodium Chloride 0.9% 10 ML Syringe FLUSH PRN (03:33)
[2023-12-11 03:55] LABS: BACTERIA,URINE FEW /HPF (0-FEW/HPF); EPITHELIAL CELLS,URINE FEW /HPF (NOT SEEN); RBC,URINE 0-5 /HPF (0-5); WBC,URINE 0-5 /HPF (0-5/HPF)
[2023-12-11 03:56] LABS: MUCUS,URINE FEW /LPF (NOT SEEN)
== END 2023-12-11 04:00 | disposition home or self-care (01) ==
LOC: DL.ED 00:44
DX: J44.1 Chronic obstructive pulmonary disease with (acute) exacerbation (principal); F17.210 Nicotine dependence, cigarettes, uncomplicated; D72.829 Elevated white blood cell count, unspecified; I10 Essential (primary) hypertension; E11.9 Type 2 diabetes mellitus without complications; Z86.16 Personal history of COVID-19; Z79.82 Long term (current) use of aspirin; Z79.84 Long term (current) use of oral hypoglycemic drugs; Z79.899 Other long term (current) drug therapy; Z88.6 Allergy status to analgesic agent; Z88.8 Allergy status to other drugs, medicaments and biological substances; Z88.5 Allergy status to narcotic agent
CPT/HCPCS: 36415; 71045; 80053; 81001; 83735; 83880; 85025; 85379; 85610; 85730; 87635; 87804; 93005; A9270; J7512; 99285; J3490; J7620-GY; U0002

== ENCOUNTER 2024-02-26 00:06 | Emergency (ER) | payer OTHER ==
[2024-02-26] MEDS ORDERED: Sodium Chloride 0.9% 10 ML Syringe FLUSH PRN (00:07)
[2024-02-26 00:10] VITALS: PULSE 74
[2024-02-26] MEDS: Heparin Sodium 5,000 Units/ML Vial IVPUSH ONE (00:16)
[2024-02-26] MEDS: Heparin Sodium/0.45% NaCl 25,000 UNITS/500 ML BAG IV SCH (00:17)
[2024-02-26] MEDS: Nitroglycerin 0.4 MG Tab.SL SL ONE (00:23)
[2024-02-26 00:24] VITALS: BP 168/96
[2024-02-26] MEDS: Ondansetron 4 MG/2 ML SDV IVPUSH ONE (00:24)
[2024-02-26 00:34] LABS: BASOPHILS PERCENT AUTO 0.2 % (0.0-1.0); HEMATOCRIT 43.8 % (37.0-47.0); HEMOGLOBIN 14.5 g/dL (12.0-16.0); LYMPHOCYTES PERCENT AUTO 36.6 % (20.5-50.1); MEAN CORPUSCULAR HEMOGLOBIN 30.1 pg (27.0-34.0); MEAN CORPUSCULAR HGB CONC 33.1 g/dL (33.0-35.0); MEAN CORPUSCULAR VOLUME 90.9 fL (80-100); MONOCYTES PERCENT AUTO 5.5 % (2-8); NEUTROPHILS PERCENT AUTO 56.7 % (42.2-75.2); PLATELET COUNT,PLT 255 10^3/uL (150-450); RED BLOOD CELL COUNT 4.82 10^6/uL (4.2-5.4); WHITE BLOOD CELL COUNT,WBC 10.2 10^3/uL (5.0-10.0)
[2024-02-26 00:45] LABS: MAGNESIUM 2.2 mg/dL (1.8-2.4)
[2024-02-26] MEDS ORDERED: Alteplase 2 MG Vial IVPUSH ONE (00:46)
[2024-02-26 00:52] LABS: PROTHROMBIN TIME 9.9 SEC (9.0-12.0); PTT,PARTIAL THROMBOPLSTIN TIME 23.7 SEC (22.0-34.0)
[2024-02-26] MEDS: Tenecteplase 50 MG Kit IVPUSH ONE (00:54)
[2024-02-26 00:57] LABS: ALBUMIN 3.7 g/dL (3.4-5.0); ANION GAP 14.9 mEq/L (7-13); BILIRUBIN TOTAL 0.6 mg/dL (0.2-1.0); BUN/CREATININE RATIO 14.6 (No establ ref range); CALCIUM 8.9 mg/dL (8.5-10.1); CREATININE 0.82 mg/dL (0.55-1.02); EST CRCL DRUG DOSING (CG) 67.73 mL/min; POTASSIUM,K 4.9 mmol/L (3.5-5.1); PROTEIN TOTAL,TP 7.4 g/dL (6.4-8.2)
[2024-02-26] MEDS: Heparin Sodium 5,000 Units/ML Vial ONE (01:02)
[2024-02-26] MEDS: Heparin Sodium/0.45% NaCl 500 ML ONE (01:02)
[2024-02-26] MEDS: LORazepam 2 MG/ML SDV IVPUSH ONE (01:26)
== END 2024-02-26 01:30 ==
LOC: DL.ED 00:06
DX: I21.9 Acute myocardial infarction, unspecified (principal); R07.89 Other chest pain; I10 Essential (primary) hypertension; E11.9 Type 2 diabetes mellitus without complications; F17.210 Nicotine dependence, cigarettes, uncomplicated; Z88.5 Allergy status to narcotic agent; Z88.8 Allergy status to other drugs, medicaments and biological substances; Z79.82 Long term (current) use of aspirin; Z79.84 Long term (current) use of oral hypoglycemic drugs; Z79.899 Other long term (current) drug therapy; Z86.16 Personal history of COVID-19
CPT/HCPCS: 36415; 71045; 80053; 83735; 84484; 85025; 85610; 85730; 93005; 96365; 96375; 99285; A9270; J1644; J2060; J2405; J3101

== ENCOUNTER 2024-04-21 20:11 | Emergency (ER) | payer OTHER ==
[2024-04-21 20:59] VITALS: BP 155/80; PULSE 77
[2024-04-21] MEDS: Cephalexin 500 MG Cap PO ONE (21:06)
[2024-04-21] MEDS: Bacitracin Oint 1 GM U/D Packet TOP ONE (21:06)
== END 2024-04-21 21:37 | disposition home or self-care (01) ==
LOC: DL.ED 20:11
DX: R23.8 Other skin changes (principal); L08.9 Local infection of the skin and subcutaneous tissue, unspecified; E11.69 Type 2 diabetes mellitus with other specified complication; I25.10 Atherosclerotic heart disease of native coronary artery without angina pectoris; I25.2 Old myocardial infarction; I10 Essential (primary) hypertension; E78.00 Pure hypercholesterolemia, unspecified; F17.210 Nicotine dependence, cigarettes, uncomplicated; Z86.73 Personal history of transient ischemic attack (TIA), and cerebral infarction without residual deficits; Z86.16 Personal history of COVID-19; Z88.5 Allergy status to narcotic agent; Z88.8 Allergy status to other drugs, medicaments and biological substances; Z79.82 Long term (current) use of aspirin; Z79.84 Long term (current) use of oral hypoglycemic drugs; Z79.899 Other long term (current) drug therapy
CPT/HCPCS: 10060; 99283; A9270

== ENCOUNTER 2024-06-05 10:38 | Emergency (ER) | payer OTHER ==
[2024-06-05 11:21] LABS: BASOPHILS PERCENT AUTO 0.1 % (0.0-1.0); EOSINOPHILS PERCENT AUTO 2.2 % (1.0-3.0); HEMOGLOBIN 13.8 g/dL (12.0-16.0); LYMPHOCYTES PERCENT AUTO 41.3 % (20.5-50.1); MEAN CORPUSCULAR HGB CONC 32.9 g/dL (33.0-35.0); MEAN CORPUSCULAR VOLUME 91.3 fL (80-100); MONOCYTES PERCENT AUTO 5.6 % (2-8); NEUTROPHILS PERCENT AUTO 50.8 % (42.2-75.2); PLATELET COUNT,PLT 244 10^3/uL (150-450); WHITE BLOOD CELL COUNT,WBC 7.6 10^3/uL (5.0-10.0)
[2024-06-05 11:33] LABS: A/G RATIO 0.9; ALBUMIN 3.5 g/dL (3.4-5.0); ANION GAP 13.4 mEq/L (7-13); BILIRUBIN TOTAL 0.4 mg/dL (0.2-1.0); BUN/CREATININE RATIO 18.3 (No establ ref range); CALCIUM 9.1 mg/dL (8.5-10.1); CREATININE 0.71 mg/dL (0.55-1.02); EST CRCL DRUG DOSING (CG) 78.22 mL/min; POTASSIUM,K 5.4 mmol/L (3.5-5.1); PROTEIN TOTAL,TP 7.2 g/dL (6.4-8.2)
[2024-06-05 11:42] LABS: INR 0.9 (0.9-1.2); PROTHROMBIN TIME 9.1 SEC (9.0-12.0); PTT,PARTIAL THROMBOPLSTIN TIME 24.4 SEC (22.0-34.0)
[2024-06-05 13:10] VITALS: BP 132/76; PULSE 65
== END 2024-06-05 13:32 | disposition home or self-care (01) ==
LOC: DL.ED 10:38
DX: R07.89 Other chest pain (principal); E78.00 Pure hypercholesterolemia, unspecified; I10 Essential (primary) hypertension; I25.10 Atherosclerotic heart disease of native coronary artery without angina pectoris; E11.9 Type 2 diabetes mellitus without complications; Z88.8 Allergy status to other drugs, medicaments and biological substances; Z79.82 Long term (current) use of aspirin; Z79.84 Long term (current) use of oral hypoglycemic drugs; Z79.899 Other long term (current) drug therapy; Z86.16 Personal history of COVID-19
CPT/HCPCS: 36415; 71046; 80053; 83880; 84484; 85025; 85610; 85730; 93005; 93010; 99284; 99285

== ENCOUNTER 2024-08-18 22:55 | Emergency (ER) | payer OTHER ==
[2024-08-18 23:23] LABS: BASOPHILS PERCENT AUTO 0.1 % (0.0-1.0); EOSINOPHILS PERCENT AUTO 1.5 % (1.0-3.0); HEMATOCRIT 40.2 % (37.0-47.0); HEMOGLOBIN 13.7 g/dL (12.0-16.0); LYMPHOCYTES PERCENT AUTO 26.7 % (20.5-50.1); MEAN CORPUSCULAR HEMOGLOBIN 30.4 pg (27.0-34.0); MEAN CORPUSCULAR HGB CONC 34.1 g/dL (33.0-35.0); MEAN CORPUSCULAR VOLUME 89.3 fL (80-100); MONOCYTES PERCENT AUTO 7.2 % (2-8); NEUTROPHILS PERCENT AUTO 64.5 % (42.2-75.2); PLATELET COUNT,PLT 275 10^3/uL (150-450); WHITE BLOOD CELL COUNT,WBC 9.1 10^3/uL (5.0-10.0)
[2024-08-18 23:40] LABS: A/G RATIO 0.82; ALANINE AMINOTRANSFERASE,ALT 17 U/L (14-59); ALBUMIN 3.1 g/dL (3.4-5.0); ALKALINE PHOSPHATASE 78 U/L (46-116); ASPARTATE AMNIOTRANSFERASE,AST 10 U/L (15-37); BILIRUBIN TOTAL 0.4 mg/dL (0.2-1.0); BLOOD UREA NITROGEN,BUN 13 mg/dL (7-18); BUN/CREATININE RATIO 14.4 (No establ ref range); C-REACTIVE PROTEIN < 0.50 ng/dL (<=0.50); CALCIUM 8.6 mg/dL (8.5-10.1); CARBON DIOXIDE,CO2 28 mmol/L (21-32); CHLORIDE,CL 107 mmol/L (98-107); EST CRCL DRUG DOSING (CG) 60.99 mL/min; ESTIMATED GFR 76 mL/min (>=60); GLUCOSE RANDOM 237 mg/dL (70-99); PROTEIN TOTAL,TP 6.9 g/dL (6.4-8.2); SODIUM,NA 142 mmol/L (136-145); URIC ACID 2.7 mg/dL (2.6-6.0)
[2024-08-19] MEDS: Ketorolac 30 MG/ML SDV IM ONE (01:54)
[2024-08-19] MEDS: Lidocaine 1% 5 ML VIAL INJECT ONE (02:04)
[2024-08-19 03:17] VITALS: BP 148/89; PULSE 85
== END 2024-08-19 02:46 | disposition home or self-care (01) ==
LOC: DL.ED 22:55
DX: M71.122 Other infective bursitis, left elbow (principal); I25.10 Atherosclerotic heart disease of native coronary artery without angina pectoris; I10 Essential (primary) hypertension; E78.00 Pure hypercholesterolemia, unspecified; I25.2 Old myocardial infarction; E11.9 Type 2 diabetes mellitus without complications; Z86.73 Personal history of transient ischemic attack (TIA), and cerebral infarction without residual deficits; Z88.5 Allergy status to narcotic agent; Z95.5 Presence of coronary angioplasty implant and graft; Z88.8 Allergy status to other drugs, medicaments and biological substances; Z79.82 Long term (current) use of aspirin; Z79.84 Long term (current) use of oral hypoglycemic drugs; Z79.899 Other long term (current) drug therapy
CPT/HCPCS: 36415; 80053; 84550; 85025; 86140; 96372; 99283; 99284; J1885; J2003

== ENCOUNTER 2024-12-09 16:05 | Emergency (ER) | payer OTHER ==
[2024-12-09 16:35] LABS: APPEARANCE,URINE CLEAR (CLEAR); GLUCOSE,URINE 100 (NEGATIVE); OCCULT BLOOD,URINE TRACE-INTACT (NEGATIVE)
[2024-12-09 16:45] LABS: EPITHELIAL CELLS,URINE MODERATE /HPF (NOT SEEN)
[2024-12-09] MEDS ORDERED: Sodium Chloride 0.9% 10 ML Syringe FLUSH PRN (16:50)
[2024-12-09 17:11] LABS: BASOPHILS PERCENT AUTO 0.3 % (0.0-1.0); EOSINOPHILS PERCENT AUTO 3.0 % (1.0-3.0); LYMPHOCYTES PERCENT AUTO 39.2 % (20.5-50.1); MONOCYTES PERCENT AUTO 5.7 % (2-8); NEUTROPHILS PERCENT AUTO 51.8 % (42.2-75.2); PLATELET COUNT,PLT 266 10^3/uL (150-450); RED BLOOD CELL COUNT 4.38 10^6/uL (4.2-5.4); WHITE BLOOD CELL COUNT,WBC 6.6 10^3/uL (5.0-10.0)
[2024-12-09 17:26] LABS: A/G RATIO 0.91; ALANINE AMINOTRANSFERASE,ALT 16.0 U/L (14-59); ASPARTATE AMNIOTRANSFERASE,AST 9.0 U/L (15-37); BILIRUBIN TOTAL 0.4 mg/dL (0.2-1.0); BLOOD UREA NITROGEN,BUN 14.0 mg/dL (7-18); CARBON DIOXIDE,CO2 26.0 mmol/L (21-32); CHLORIDE,CL 109.0 mmol/L (98-107); CREATININE 0.78 mg/dL (0.55-1.02); EST CRCL DRUG DOSING (CG) 70.37 mL/min; ESTIMATED GFR 90.0 mL/min (>=60); GLUCOSE RANDOM 155.0 mg/dL (70-99); POTASSIUM,K 3.8 mmol/L (3.5-5.1); PROTEIN TOTAL,TP 6.5 g/dL (6.4-8.2); SODIUM,NA 144.0 mmol/L (136-145)
[2024-12-09 17:31] LABS: INR 1.0 (0.9-1.2); PTT,PARTIAL THROMBOPLSTIN TIME 24.5 SEC (22.0-34.0)
[2024-12-09] MEDS: Ketorolac 30 MG/ML SDV IVPUSH ONE (17:48)
[2024-12-09] MEDS: Take Home: Acetaminophen/HYDROcodone 325-5 MG, 5 Tab Pack PO ONE (19:19)
[2024-12-09 19:22] VITALS: BP 105/69; PULSE 74
== END 2024-12-09 19:20 | disposition home or self-care (01) ==
LOC: DL.ED 16:05
DX: K80.20 Calculus of gallbladder without cholecystitis without obstruction (principal); I10 Essential (primary) hypertension; I25.10 Atherosclerotic heart disease of native coronary artery without angina pectoris; E78.00 Pure hypercholesterolemia, unspecified; I25.2 Old myocardial infarction; E11.9 Type 2 diabetes mellitus without complications; Z86.16 Personal history of COVID-19; Z95.5 Presence of coronary angioplasty implant and graft; F17.200 Nicotine dependence, unspecified, uncomplicated; Z79.82 Long term (current) use of aspirin; Z79.84 Long term (current) use of oral hypoglycemic drugs; Z79.899 Other long term (current) drug therapy; Z79.02 Long term (current) use of antithrombotics/antiplatelets; Z88.5 Allergy status to narcotic agent; Z88.8 Allergy status to other drugs, medicaments and biological substances
CPT/HCPCS: 36415; 76705; 80053; 81001; 85025; 85610; 85730; 96374; 99284-25; A9270-GY; J1885